=== PATIENT | female | born 1940 | race Caucasian/White ===

== ENCOUNTER 2022-08-14 13:48 | Outpatient (CLI) | payer MEDICARE, SELFPAY | END 2022-08-14 13:49 | disposition home or self-care (01) | PROVIDERS: PCP Family Medicine; Visit Provider Internal Medicine | DX: Z95.2 Presence of prosthetic heart valve (principal); I34.0 Nonrheumatic mitral (valve) insufficiency; I07.1 Rheumatic tricuspid insufficiency | CPT/HCPCS: 93306 ==

== ENCOUNTER 2024-07-13 08:15 | Emergency (ER) | payer MEDICARE, SELFPAY ==
[2024-07-13] VITALS (10 sets, daily range): BP systolic 142–156; BP diastolic 62–72; PULSE 68–80; RESP 18; TEMP 36.6; O2SAT 95–99; BMI 22.1
--- NOTE | 2024-07-13 08:17 | ED.GENADULT ---
HPI - General Adult General Date Seen: 07/13/24 Chief complaint: Fall/Minor Trauma Stated complaint: Fall Time Seen by Provider: 07/13/24 08:17 History of Present Illness HPI narrative: 84-year-old female presenting to the ER today by private car from her home. She is brought in by her daughter. She has a past medical history of hypertension, coronary artery disease (stents placed several years ago), aortic stenosis status post TAVR, but no history of diabetes, cancer, seizures. History from the patient her daughter is that beginning in the evening or overnight Wednesday she began to be ill. She developed diarrhea with at least 8 episodes of watery brown stool. With this she also had fairly significant lower abdominal pain and cramping. She had a poor appetite but no nausea or vomiting. No fevers. The diarrhea largely subsided by around noon on Wednesday. Since then she has had fatigue and malaise. She has had a poor appetite. She says she just can not eat because everything tastes ?like paper. ? No cough. No fever or chills. Her daughter was helping her in. By yesterday to bring her some water and snacks but it sounds like she was not eating it and may not have been drinking much. Patient recalls that she was watching a show on her TV yesterday about 7. She woke up on the floor for kitchen about 9:30 p.m. last night. She does not know what happened but she thinks she must have gotten there and either fallen or fainted. She does not recall anything about the fall. She was too weak get herself off the floor so she crawled down the hallway and crawled into bed last night. She says she slept pretty well. She called her daughter this morning about 7 and asked her daughter to bring her in because she is just too weak. Since falling she does have pain in her her right hip, right foot, and elbow. No headache. No chest pain. No blurry vision. No nausea or vomiting. She still feels weak, poor appetite and does not want to eat or drink. She takes aspirin but does not think she is on Plavix. No other anticoagulants. Related Data Home Medications ?Medication ?Instructions ?Recorded ?Confirmed alendronate 70 mg tablet 70 mg PO 07/13/24 amlodipine 5 mg tablet 5 mg PO DAILY 07/13/24 07/13/24 hydrochlorothiazide 12.5 mg capsule 12.5 mg PO DAILY 07/13/24 07/13/24 potassium chloride 10 mEq 10 meq PO DAILY 07/13/24 07/13/24 tablet,extended release(part/cryst) rosuvastatin 40 mg tablet 40 mg PO QPM 07/13/24 07/13/24 Allergies Allergy/AdvReac Type Severity Reaction Status Date / Time Iodinated Contrast Media Allergy Verified 07/13/24 08:32 [facility] Social History Smoking Status: Never smoker Do you use any of these nicotine containing products: None How often do you have a drink containing alcohol: never AUDIT-C Alcohol total score: 0 Non-prescribed substance use: denies use Exam Narrative: Exam Narrative: Constitutional: Appears well-developed and well-nourished. Alert. Conversant but seems hard of hearing at times. Non toxic. HENT: Head: Atraumatic. No depressed skull fracture, Raccoon Eyes, Haas's sign, or hemotympanum. Face normal. Nose: Nose normal. Mouth/Throat: Oral mucosa is clear and moist. no trismus. Pharynx normal. Tonsils symmetric. No tonsillar enlargement, erythema, or exudate. Eyes: Conjunctivae normal. EOM normal. Pupils equal, round, and reactive to light. No scleral icterus. Neck: No posterior midline tenderness or step-off. Normal range of motion. Neck supple. No tracheal deviation present. Cardiovascular: Normal rate, regular rhythm. No gallop. No friction rub. No murmur heard. Symmetric radial and DP artery pulses Pulmonary/Chest: Effort normal. No stridor. No respiratory distress. No wheezes. No rales. No rhonchi . No tenderness. Abdominal: Soft. Bowel sounds normal. No distension. No mass. Epigastric and bilateral lower tenderness. No rebound. No guarding. No CVA tender Musculoskeletal: No midline C, T, L-spine tenderness Pelvis is stable. RUE: Normal range of motion. No tenderness. No deformity LUE: Normal range of motion. No tenderness. No deformity RLE: Right hip tenderness to palpation. No bruising or swelling. No edema. Femur, knee, ankle or nontender. She has bruising and tenderness over the distal forefoot with ecchymosis affecting the 3rd, 4th, 5th toes. No deformity LLE: Normal range of motion. No edema. No tenderness. No deformity she does have bruising on her left hip and left ASIS. Neurological: Alert and oriented to person, place, and time. Normal strength. CN II-VII intact. No sensory deficit. GCS eye subscore is 4. GCS verbal subscore is 5. GCS motor subscore is 6. Normal coordination Skin: Skin is warm and dry. No rash noted. No pallor. Normal capillary refill. Psychiatric: Normal mood. Normal affect. Const: Vital Signs, click to edit/add: Vital Signs - 24 hr 07/13/24 08:25 07/13/24 08:26 07/13/24 08:30 Temperature 97.8 F Pulse Rate Pulse Rate [Right Pulse Oximeter] 80 Respiratory Rate 18 Blood Pressure Blood Pressure [Ri ght Upper Arm] 156/72 H Pulse Oximetry 96 99 98 Oxygen Delivery Me thod Room Air 07/13/24 08:45 07/13/24 09:00 07/13/24 09:58 Temperature Pulse Rate 72 Pulse Rate [Right Pulse Oximeter] Respiratory Rate Blood Pressure Blood Pressure [Ri ght Upper Arm] Pulse Oximetry 98 95 97 Oxygen Delivery Pr thod 07/13/24 09:59 07/13/24 10:00 07/13/24 10:15 Temperature Pulse Rate 70 68 69 Pulse Rate [Right Pulse Oximeter] Respiratory Rate Blood Pressure 142/62 H Blood Pressure [Ri ght Upper Arm] Pulse Oximetry 96 97 96 [facility] 07/13/24 10:30 Temperature Pulse Rate 69 Pulse Rate [Right Pulse Oximeter] Respiratory Rate Blood Pressure Blood Pressure [Ri ght Upper Arm] Pulse Oximetry 98 Oxygen Delivery Pr thod Course Course ED Course: Recheck-patient says she feels ?much better? after 1 L of IV crystalloid. Has had a few sips of water and says she feels like her appetite is returning. She is feeling better and requesting discharge. All labs are reassuring at this point x-rays are reassuring, her daughter and I have concerned about her overall weakness and her poor oral intake over the past couple of days. It turns out that her weakness is probably related to dehydration. We want make sure that she can pass a p.o. challenge (she will try a meal tray from the cafeteria) and ambulation trial before discharge Vital Signs Vital signs: Initial Vital Signs Temperature 97.8 F 07/13/24 08:25 Temperature Source Temporal Artery Scan 07/13/24 08:25 Pulse Rate 80 07/13/24 08:25 Respiratory Rate 18 07/13/24 08:25 Blood Pressure 156/72 H 07/13/24 08:25 Blood Pressure Mean 100 07/13/24 08:25 Blood Pressure Position Sitting 07/13/24 08:25 Pulse Oximetry 96 07/13/24 08:25 Oxygen Delivery Method Room Air 07/13/24 08:25 Vital Signs Temperature 97.8 F 07/13/24 08:25 Pulse Rate 80 07/13/24 08:25 Respiratory Rate 18 07/13/24 08:25 Blood Pressure 156/72 H 07/13/24 08:25 Pulse Oximetry 96 07/13/24 08:25 Oxygen Delivery Method Room Air 07/13/24 08:25 Temperature 97.8 F 07/13/24 08:25 Pulse Rate 69 07/13/24 10:30 Respiratory Rate 18 07/13/24 08:25 Blood Pressure 142/62 H 07/13/24 09:59 Pulse Oximetry 98 07/13/24 10:30 Oxygen Delivery Method Room Air 07/13/24 08:25 Medications Administered Medications: Discontinued Medications Generic Name Dose Route Start Last Admin Trade Name Monica PRN Reason Stop Dose Admin Ketorolac Tromethamine 15 mg 07/13/24 09:02 07/13/24 09:32 Ketorolac 15 Mg/Ml Inj IVP 07/13/24 09:03 15 mg ONCE ONE Administration Lactated Ringer's 1,000 ml 07/13/24 09:02 07/13/24 09:32 Lactated Ringers 1000 Ml IV 07/13/24 09:03 1,000 ml ONCE ONE Administration Medical Decision Making MDM Narrative Medical decision making narrative: 84-year-old woman who normally lives independently presenting to the ER today from home with her daughter. She had an unwitnessed fall in the kitchen last night. She does not recall any of the events leading up to the fall so we do not know if she tripped and lost her balance, got weak from dehydration, or possibly had a syncopal event. She has no history of seizures. 1. Trauma. No sign of head trauma but given age and limited history we did obtain head CT and is negative for any intracranial bleed. She is not having any neck pain or posterior midline tenderness. She does not have any distracting orthopedic injuries, intoxication, or altered mental status. Therefore we can clear her C-spine without imaging. She has bruising on her left elbow but no bony tenderness and normal active range of motion in there so will hold off on x-rays. She has right hip pain and tenderness (without bruising) and also a small bruise on her left ASIS. Pelvic CT is negative for any acute bony injury She also has bruising and pain in her right forefoot affecting the 3-5 toes. No evidence for any redness or infection. Strong DP pulse and normal cap refill. No signs of ischemia. With a fall last night concern is for possible toe fracture. X-rays are negative for fracture by my read. However radiology read does indicate she has a nondisplaced fracture 5th proximal phalanx of the 5th toe and possibly the 3rd toe as well. She is ambulating well with an ortho shoe. Discussed that these fractures will heal with time. No need for operative intervention list that they come angulated or displaced. 2. GI. She apparently had a diarrheal illness overnight Wednesday night and Wednesday and since then has had no further diarrhea but generally poor oral intake and some abdominal pain. CT scan is negative for any sign of colitis, diverticulitis, or bowel obstruction or other surgical emergency. Mildly abnormal LFTs with bilirubin of 1.7 and AST of 40 ALT of 36. No previous for comparison. Has had previous cholecystectomy. Liver normal on noncontrast CT. Lipase normal. 3. Renal/electrolytes. Patient did have clinical signs of dehydration with dry mucous membranes. The sodium mildly low at 131. Potassium and bicarb normal. Kidney function normal. Venous lactic normal. 4. ID. Consider bacterial enteritis versus viral. Overall minimum presentation would favor viral illness. No bloody or mucousy stool. No high fever. Labs normal. No known exposure to suspicious food. No recent antibiotics. UA normal. No cough or shortness of breath. Oxygen sats normal. 5. Heme. No recent black or bloody stools. Hemoglobin normal. No evidence for anemia leading to fall. 5. Cardiac. Did have an unexplained fall in the bathroom last night. She does have a history of aortic valve replacement and a history of coronary disease years ago. Given the rest of her clinical presentation would favor that this was probably orthostasis and dehydration from recent diarrhea with very poor oral intake since Wednesday. EKG nonischemic and shows no definite arrhythmia. Troponin negative. She is not having any chest pain. 6. Disposition. Initial presentation was concerning that she was likely going to be very dehydrated and require hospitalization overnight for rehydration. However she remained a remarkable turnaround here in the ER. She is feeling tremendously better after a L of crystalloid. She passed p.o. challenge and ambulation trial in the hallway. She has made urine more than once. Urinalysis negative for infection. She is requesting discharge. Her daughter and I are supportive of that based on her approved so far. Precautions for return to the ER reviewed. Lab Data Labs: Lab Results 07/13/24 07/13/24 Range/Units 09:24 11:00 WBC 10.32 (4.50-11.00) K/uL RBC 4.28 (4.00-5.20) m/uL Hgb 14.0 (12.0-16.0) gm/dL Hct 39.9 (33.0-51.0) % MCV 93 (80-100) fL MCH 33 (26-34) pg MCHC 35 (32-36) gm/dL RDW Coeff of Nicolasa 11.6 (11.5-15.5) % Plt Count 242 (140-440) K/uL Neut % (Auto) 73.8 H (42.0-72.0) % Lymph % (Auto) 14.1 L (20-44) % Hickman % (Auto) 10.8 (0.0-11.0) % Eos % (Auto) 0.5 (0.0-7.0) % Baso % (Auto) 0.5 (0.0-3.0) % Neut # (Auto) 7.60 H (1.7-7.0) K/uL Lymph # (Auto) 1.50 (0.90-2.90) K/uL Hickman # (Auto) 1.10 H (0.00-0.90) K/UL Eos # (Auto) 0.05 (0.00-0.50) K/uL Baso # (Auto) 0.05 (0.00-0.30) K/uL Abs Immat Gran (auto) 0.03 (0.00-0.30) K/uL Imm/Tot Granulo (auto) 0.3 % Sodium 131 L (135-149) mmol/L Potassium 3.8 (3.6-5.1) mmol/L Chloride 96 (96-114) mmol/L Carbon Dioxide 27 (20-32) mmol/L Anion Gap 8 (7-15) mEq/L BUN 9 (7-30) mg/dL Creatinine 0.5 (0.5-1.5) mg/dL Estimated Creat Clear 35.52 Estimated GFR 92 ml/min Glucose 99 (60-115) mg/dL Lactate 1.0 (0.5-1.9) mmol/L Calcium 9.7 (8.4-10.6) mg/dL Total Bilirubin 1.7 H (0.1-1.5) mg/dL AST 40 H (12-35) U/L ALT 36 H (4-35) U/L Alkaline Phosphatase 66 (40-150) U/L Troponin I 0.03 (0.01-0.04) ng/mL Total Protein 7.8 (6.0-8.3) g/dL Albumin 5.1 H (3.3-5.0) g/dL Lipase 88 (23-300) U/L Urine Color Yellow (Yellow) Urine Appearance Clear (Clear) Urine pH 7.5 (5.0-8.5) Ur Specific [place] 1.015 (1.000-1.030) Urine Protein Negative (Negative) Urine Glucose (UA) Negative (Negative) Urine Ketones Negative (Negative) Urine Blood Negative (Negative) Urine Nitrite Negative (Negative) Urine Bilirubin Negative (Negative) Urine Urobilinogen 0.2 (0.2-1.0) Ur Leukocyte Esterase Negative (Negative) Urine RBC 0-2 (0-2) Urine WBC 0-2 (0-5) Ur Squamous Epith Cells None (None-Few) Urine Bacteria None (None) Imaging Data CT scan - head: Attestation: I have reviewed the pertinent imaging results. Radiologist's impression: IMPRESSION: No acute findings. CT scan - abdomen: Attestation: I have reviewed the pertinent imaging results. Radiologist's impression: Impression: 1. Mild emphysematous and chronic interstitial changes without dense consolidation. 2. Moderate stool seen throughout the colon with minimal nonspecific fluid-filled central small bowel which may represent mild enteritis. 3. No other acute intra-abdominal abnormalities are appreciated. No acute osseous abnormality. xr left foot: Attestation: I have reviewed the pertinent imaging results. My impression: no acute fracture Dr. farias Radiologist's impression: Findings/Impression: Nondisplaced fracture at the proximal shaft and base of the proximal 5th phalanx without apparent intra-articular extension. Likely nondisplaced fracture at the base of the 3rd proximal phalanx with tiny adjacent osseous fragment and no intra-articular extension. No additional fractures or malalignment. Trace osteoarthritic degenerative changes throughout the interphalangeal joints and midfoot. No suspicious osseous lesions. Achilles aspect calcaneal enthesophyte. Mild soft tissue swelling of the 4th and 5th toes. Minimal vascular calcifications. ECG Data Attestation: I personally reviewed and interpreted this ECG as follows: Interpretation: Normal sinus rhythm Rate: 74 AK: 158 QRS axis: Left axis deviation. Right bundle-branch block. Left anterior fascicular block. Possible LVH based on tall R-wave in lead aVL ST segment/T wave: No ST segment elevation or depression. QTc: 499 Discharge Plan Discharge Clinical Impression: Fall, Dehydration, Closed fracture of toe, Contusion of hip, Diarrhea Patient Disposition: Home, Self-Care Condition: Stable Instructions: Dehydration (DC), Toe Fracture (ED), Fall Prevention for Older Adults (ED) Additional Instructions: As we discussed, drink plenty of fluids and try to eat small stacks to maintain hydration and nutrition. If you are having worsening dehydration or weakness, nausea or vomiting, or if your diarrhea comes back, or any other problems please come back to the ER right away. You do have broken toes on your right foot. Use the special foot brace to protect her toes for the next couple of weeks while they heal. If her not substantially improved within 7-10 days, please recheck with your regular doctor. You can use Tylenol or ibuprofen if needed for pain. Keep your foot elevated when possible. Prescriptions: No Action alendronate 70 mg tablet 70 mg PO amlodipine 5 mg tablet 5 mg PO DAILY hydrochlorothiazide 12.5 mg capsule 12.5 mg PO DAILY rosuvastatin 40 mg tablet 40 mg PO QPM potassium chloride 10 mEq tablet,ER particles/crystals 10 meq PO DAILY Follow Up/Referrals: Ayan Brambila MD [Primary Care Provider] - Stand Alone Forms: [employer] Info Instructions
--- NOTE | 2024-07-13 09:03 | CRLHL7_ITS ---
For Patients: As a result of the 21st Century Cures Act, medical imaging exams and procedure reports are released immediately into your electronic medical record. You may view this report before your referring provider. If you have questions, please contact your health care provider. Indication: Fall, abdominal pain, diarrhea, hip pain Technique: Volumetric multidetector CT images of the chest, abdomen, and pelvis were obtained without the administration of intravenous contrast. No low osmolar intravenous contrast Comparison: CT abdomen and pelvis June 27, 2019 FINDINGS: CHEST The thoracic inlet is unremarkable. The thyroid gland is within normal limits. The thoracic aorta is nonaneurysmal with scattered atherosclerotic calcification. Aortic valve prosthesis is appreciated. There are scattered calcified granulomas seen throughout the bilateral hemithoraces. There is no mediastinal, hilar, or axillary adenopathy. There is moderate emphysematous change of the upper lobes with basilar atelectasis and parenchymal scar. There is mild calcified biapical pleural thickening. Minimal peripheral reticulation in the right greater than left upper lobes. No dense consolidation, effusion or pneumothorax. The thoracic osseus structures are intact without fracture, lytic, or blastic lesion. The thoracic vertebral body heights are grossly maintained with minimal endplate Schmorl`s defects. There is no significant spondylolisthesis or displaced fracture. ABDOMEN AND PELVIS The liver is mildly prominent without evidence of focal abnormality. The spleen is normal in attenuation and size. There is prior cholecystectomy. There is no intrahepatic or common ductal dilatation. The stomach and duodenum are grossly unremarkable. The pancreas is normal in enhancement without significant atrophy. The adrenal glands are unremarkable without evidence of adenoma. The kidneys are preserved and corticomedullary differentiation. There is no hydronephrosis or radiopaque calculus. There is a moderate diffuse amount of intracolonic stool. There is minimal distal colonic diverticulosis. There is minimal fluid-filled central small bowel. The appendix is not well visualized. The abdominal aorta is nonaneurysmal with moderate atherosclerotic calcification. There is prior hysterectomy. Otherwise the pelvic viscera are grossly within normal limits. There is no pathologically enlarged epigastric, mesenteric, retroperitoneal, or pelvic sidewall lymph node. The anterior abdominal wall is grossly intact without significant hernias. There is no free air or free fluid. Degenerative changes of the bilateral hips with axial loss of joint space and marginal osteophyte formation. No evidence of displaced fracture. Degenerative changes of the pubic symphysis and sacroiliac joints are appreciated. Stable chronic deformity of the superior L1 endplate. Minimal endplate Schmorl`s defects without evidence of significant spondylolisthesis. Impression: 1. Mild emphysematous and chronic interstitial changes without dense consolidation. 2. Moderate stool seen throughout the colon with minimal nonspecific fluid-filled central small bowel which may represent mild enteritis. 3. No other acute intra-abdominal abnormalities are appreciated. No acute osseous abnormality. Please note that all CT scans at this facility use dose modulation, iterative reconstruction, and/or weight-based dosing when appropriate to reduce radiation dose to as low as reasonably achievable. Dictated by Cam Del oTro MD @ 07/13/2024 10:22:29 AM (Electronically Signed)
--- NOTE | 2024-07-13 09:03 | CRLHL7_ITS ---
For Patients: As a result of the Century Cures Act, medical imaging exams and procedure reports are released immediately into your electronic medical record. You may view this report before your referring provider. If you have questions, please contact your health care provider. INDICATION: Fall. COMPARISON: None available. TECHNIQUE: CT of the head without intravenous contrast. Please note that all CT scans at this facility use dose modulation, iterative reconstruction, and/or weight-based dosing when appropriate to reduce radiation dose to as low as reasonably achievable. FINDINGS: The brain is normal in attenuation with preserved costello-white matter differentiation. No hydrocephalus. No mass or mass effect. No intracranial hemorrhage. Intact skull base and cranial vault. Visualized orbits are without significant incidental findings. Bilateral lens implants. Visualized paranasal sinuses and mastoid air cells are clear. IMPRESSION: No acute findings. Please note that all CT scans at this facility use dose modulation, iterative reconstruction, and/or weight-based dosing when appropriate to reduce radiation dose to as low as reasonably achievable. Dictated by Sylvain Maya MD @ 07/13/2024 10:12:37 AM (Electronically Signed)
[2024-07-13 09:30] LABS: Basophils Absolute Auto 0.05 K/uL (0.00-0.30); Basophils Percent Auto 0.5 % (0.0-3.0); Eosinophils Absolute Auto 0.05 K/uL (0.00-0.50); Eosinophils Percent Auto 0.5 % (0.0-7.0); Hematocrit 39.9 % (33.0-51.0); Immature Granulocytes Abs Auto 0.03 K/uL (0.00-0.30); Immature Granulocytes Pct Auto 0.3 %; Lymphocytes Percent Auto 14.1 % (20-44); Mean Corpuscular HGB Conc 35 gm/dL (32-36); Mean Corpuscular Hemoglobin 33 pg (26-34); Mean Corpuscular Volume 93 fL (80-100); Monocytes Percent Auto 10.8 % (0.0-11.0); Neutrophils Percent Auto 73.8 % (42.0-72.0); Platelet Count* 242 K/uL (140-440); RDW Coefficient of Variation % 11.6 % (11.5-15.5); Red Blood Count 4.28 m/uL (4.00-5.20); White Blood Count* 10.32 K/uL (4.50-11.00)
[2024-07-13] MEDS: LACTATED RINGERS 1000 ML IV (09:32)
[2024-07-13] MEDS: KETOROLAC 15 MG/ML inj IVP (09:32)
[2024-07-13 09:37] LABS: Slide Review Reflex No
[2024-07-13 09:53] LABS: Albumin* 5.1 g/dL (3.3-5.0)
[2024-07-13 09:54] LABS: Chloride* 96 mmol/L (96-114); Potassium* 3.8 mmol/L (3.6-5.1); Sodium* 131 mmol/L (135-149)
[2024-07-13 09:56] LABS: Alkaline Phosphatase* 66 U/L (40-150); Anion Gap 8 mEq/L (7-15); Aspartate Amino Transferase* 40 U/L (12-35); Bilirubin Total* 1.7 mg/dL (0.1-1.5); Blood Urea Nitrogen* 9 mg/dL (7-30); Carbon Dioxide* 27 mmol/L (20-32); Creatinine* 0.5 mg/dL (0.5-1.5); Est. Creatinine Clearance* 35.52; Estimated Glomerular Filt Rate 92 ml/min; Total Protein* 7.8 g/dL (6.0-8.3)
[2024-07-13 09:57] LABS: Alanine Aminotransferase* 36 U/L (4-35); Calcium* 9.7 mg/dL (8.4-10.6); Glucose* 99 mg/dL (60-115); Lipase* 88 U/L (23-300)
[2024-07-13 10:09] LABS: Troponin I* 0.03 ng/mL (0.01-0.04)
--- NOTE | 2024-07-13 10:33 | CRLHL7_ITS ---
For Patients: As a result of the Cures Act, medical imaging exams and procedure reports are released immediately into your electronic medical record. You may view this report before your referring provider. If you have questions, please contact your health care provider. Indication: fall, foot pain, bruising 3-5 toes Technique: Three views of the right foot Comparison: None Findings/Impression: Nondisplaced fracture at the proximal shaft and base of the proximal 5th phalanx without apparent intra-articular extension. Likely nondisplaced fracture at the base of the 3rd proximal phalanx with tiny adjacent osseous fragment and no intra-articular extension. No additional fractures or malalignment. Trace osteoarthritic degenerative changes throughout the interphalangeal joints and midfoot. No suspicious osseous lesions. Achilles aspect calcaneal enthesophyte. Mild soft tissue swelling of the 4th and 5th toes. Minimal vascular calcifications. Dictated by Mio Young MD @ 07/13/2024 12:33:17 PM (Electronically Signed)
[2024-07-13 11:10] LABS: Appearance Urine Clear (Clear); Bilirubin Urine Negative (Negative); Blood Urine Negative (Negative); Color Urine Yellow (Yellow); Glucose Urine Negative (Negative); Ketones Urine Negative (Negative); Leukocyte Esterase Urine Negative (Negative); Nitrite Urine Negative (Negative); Protein Urine Negative (Negative); Specific Gravity Urine 1.015 (1.000-1.030); Urobilinogen Urine 0.2 (0.2-1.0); pH Urine 7.5 (5.0-8.5)
[2024-07-13 11:25] LABS: RBC Urine 0-2 (0-2); WBC Urine 0-2 (0-5)
== END 2024-07-13 13:40 | disposition home or self-care (01) ==
PROVIDERS: Emergency Provider Emergency Medicine; PCP Family Medicine
DX: S70.01XA Contusion of right hip, initial encounter (principal); S92.514A Nondisplaced fracture of proximal phalanx of right lesser toe(s), initial encounter for closed fracture; W19.XXXA Unspecified fall, initial encounter
CPT/HCPCS: 36415; 70450; 73630; 74176; 80053; 81001; 83605; 83690; 84484; 85025; 93005; 96374; 99284; 99285; J1885; J7120

== ENCOUNTER 2025-01-06 08:50 | Inpatient (IN) | payer MEDICARE, SELFPAY ==
[2025-01-06] VITALS (28 sets, daily range): BP systolic 62–147; BP diastolic 35–90; PULSE 62–97; RESP 12–144; TEMP 36.6–36.9; O2SAT 92–99; BMI 22.1; BMI 22.0
[2025-01-06] MEDS: NITROGLYCERIN 0.4 MG TAB.SUBL SUBLINGUAL (09:22)
[2025-01-06 09:31] LABS: Basophils Absolute Auto 0.05 K/uL (0.00-0.30); Basophils Percent Auto 0.8 % (0.0-3.0); Eosinophils Absolute Auto 0.09 K/uL (0.00-0.50); Eosinophils Percent Auto 1.4 % (0.0-7.0); Hematocrit 39.4 % (33.0-51.0); Hemoglobin* 13.5 gm/dL (12.0-16.0); Immature Granulocytes Abs Auto 0.02 K/uL (0.00-0.30); Immature Granulocytes Pct Auto 0.3 %; Lymphocytes Percent Auto 17.8 % (20-44); Mean Corpuscular HGB Conc 34 gm/dL (32-36); Mean Corpuscular Hemoglobin 33 pg (26-34); Mean Corpuscular Volume 96 fL (80-100); Monocytes Percent Auto 5.3 % (0.0-11.0); Neutrophils Percent Auto 74.4 % (42.0-72.0); Platelet Count* 213 K/uL (140-440); RDW Coefficient of Variation % 12.8 % (11.5-15.5); Troponin, Point-of-Care* 0.02 ng/ml (0.01-0.04); White Blood Count* 6.57 K/uL (4.50-11.00)
[2025-01-06] MEDS: 0.9 % SODIUM CHLORIDE 1000 ml 1,000 ML IV ×2 (09:36→13:46)
--- NOTE | 2025-01-06 09:36 | ED.GENADULT ---
HPI - General Adult General Date Seen: 01/06/25 Chief complaint: Back Injury/Pain Stated complaint: chest/back pain Time Seen by Provider: 01/06/25 09:13 Source: patient Mode of arrival: ambulatory Limitations: no limitations History of Present Illness HPI narrative: Patient is an 84-year-old female presenting to the emergency department for chest and back pain. She states she woke up this morning and went to the bathroom. When she laid back down she noticed the severe chest pain that radiates to her back. She states it is midsternal in feels like a pressure sensation in her chest. She has had an DE before with stents but does not remember what her symptoms were at that time. States she initially felt very diaphoretic but that has since improved. Has had echo in October the which the patient states was normal. Has had a recent fall in October also which she broke 3 toes. She states she has noticed some very mild shortness of breath then states the pain may get a little bit worse when she takes a deep breath but can not say for certain. Was feeling lightheaded that improved now that she is laying down. Denies abdominal pain, nausea, vomiting, diarrhea, constipation, weakness, numbness, headache, dysuria. Can not remember ever having symptoms like this before. Related Data Home Medications ?Medication ?Instructions ?Recorded ?Confirmed alendronate 70 mg tablet 70 mg PO .Wednesday07/13/24 01/06/25 amlodipine 5 mg tablet 5 mg PO DAILY 07/13/24 01/06/25 hydrochlorothiazide 12.5 mg capsule 12.5 mg PO DAILY 07/13/24 01/06/25 potassium chloride 10 mEq 10 meq PO DAILY 07/13/24 01/06/25 tablet,extended release(part/cryst) rosuvastatin 40 mg tablet 40 mg PO HS 07/13/24 01/06/25 aspirin 81 mg chewable tablet 81 mg PO DAILY 01/06/25 01/06/25 cholecalciferol (vitamin D3) 75 75 mcg PO DAILY 01/06/25 01/06/25 mcg (3,000 unit) tablet magnesium PO DAILY 01/06/25 Allergies Allergy/AdvReac Type Severity Reaction Status Date / Time Iodinated Contrast Media Allergy Unknown Edema Verified 01/06/25 10:16 Review of Systems Status of ROS: Reports: 10 or more systems reviewed and unremarkable except as noted in History and below [facility] Social History Smoking Status: Never smoker Do you use any of these nicotine containing products: None How often do you have a drink containing alcohol: never AUDIT-C Alcohol total score: 0 Non-prescribed substance use: denies use Exam Narrative: Exam Narrative: Const: Well-nourished, Well-developed, in moderate distress Eyes: PERRL, no conjunctival injection, and symmetrical lids HENT: Atraumatic external nose and ears. Moist mucous membranes. Neck: Symmetric, trachea midline, No thyromegaly. CVS: RRR, No murmurs or gallops. Peripheral pulses 2+ and equal in all extremities RESP: Unlabored respiratory effort. Clear to auscultation bilaterally. GI: Nontender/Nondistended, No rebound or guarding. MSK:Extremities w/o deformity, Normal Active ROM Skin: Warm, Dry. No rashes or lesions. Neuro: Normal Muscle tone, No focal neurological deficits. Psych: Awake, Alert, & Oriented x3. Appropriate mood and affect. Const: Vital Signs, click to edit/add: Vital Signs - 24 hr 01/06/25 09:06 01/06/25 09:18 01/06/25 09:26 Temperature 98.4 F Pulse Rate 76 73 Pulse Rate [Pulse Oximeter] 67 Respiratory Rate 12 14 12 Blood Pressure 147/81 H 131/59 L Blood Pressure [Ri ght Upper Arm] 136/61 Pulse Oximetry 99 98 99 Oxygen Delivery Me thod Room Air 01/06/25 09:31 01/06/25 09:34 01/06/25 09:41 Temperature Pulse Rate 66 62 66 Pulse Rate [Pulse Oximeter] Respiratory Rate 17 18 12 Blood Pressure 80/40 L 62/35 L 87/58 L Blood Pressure [Ri ght Upper Arm] Pulse Oximetry 96 96 97 Oxygen Delivery Me thod 01/06/25 09:48 01/06/25 09:55 01/06/25 10:02 Temperature Pulse Rate 68 72 70 Pulse Rate [Pulse Oximeter] Respiratory Rate 20 12 14 Blood Pressure 90/71 111/68 96/58 L Blood Pressure [Ri ght Upper Arm] Pulse Oximetry 98 95 92 Oxygen Delivery Me thod 01/06/25 10:17 01/06/25 10:31 01/06/25 10:47 Temperature Pulse Rate 72 74 70 Pulse Rate [Pulse Oximeter] Respiratory Rate 18 12 19 Blood Pressure 94/48 L 98/71 96/59 L Blood Pressure [Ri ght Upper Arm] Pulse Oximetry 95 93 93 Oxygen Delivery Me thod 01/06/25 11:02 01/06/25 11:32 01/06/25 11:47 Temperature Pulse Rate 75 80 75 Pulse Rate [Pulse Oximeter] Respiratory Rate 14 21 20 Blood Pressure 102/68 106/45 L 101/38 L Blood Pressure [Ri ght Upper Arm] Pulse Oximetry 95 94 95 Oxygen Delivery Me thod 01/06/25 12:01 01/06/25 12:31 01/06/25 12:46 Temperature Pulse Rate 76 77 78 Pulse Rate [Pulse Oximeter] Respiratory Rate 15 20 22 Blood Pressure 104/43 L 97/62 113/90 H Blood Pressure [Ri ght Upper Arm] Pulse Oximetry 97 95 95 Oxygen Delivery Me thod 01/06/25 13:01 Temperature Pulse Rate 82 Pulse Rate [Pulse Oximeter] Respiratory Rate 20 Blood Pressure 107/83 Blood Pressure [Ri ght Upper Arm] Pulse Oximetry 95 Oxygen Delivery Me thod Room Air Course Vital Signs Vital signs: Initial Vital Signs Temperature 98.4 F 01/06/25 09:06 Temperature Source Temporal Artery Scan 01/06/25 09:06 Pulse Rate 67 01/06/25 09:06 Respiratory Rate 12 01/06/25 09:06 Blood Pressure 136/61 01/06/25 09:06 Blood Pressure Mean 86 01/06/25 09:06 Blood Pressure Position High-Fowlers 01/06/25 09:06 Pulse Oximetry 99 01/06/25 09:06 Oxygen Delivery Method Room Air 01/06/25 09:06 Vital Signs Temperature 98.4 F 01/06/25 09:06 Pulse Rate 67 01/06/25 09:06 Respiratory Rate 12 01/06/25 09:06 Blood Pressure 136/61 01/06/25 09:06 Pulse Oximetry 99 01/06/25 09:06 Oxygen Delivery Method Room Air 01/06/25 09:06 Temperature 98.4 F 01/06/25 09:06 Pulse Rate 82 01/06/25 13:01 Respiratory Rate 20 01/06/25 13:01 Blood Pressure 107/83 01/06/25 13:01 Pulse Oximetry 95 01/06/25 13:01 Oxygen Delivery Method Room Air 01/06/25 13:01 Medications Administered Medications: Discontinued Medications Generic Name Dose Route Start Last Admin Trade Name Monica PRN Reason Stop Dose Admin Diphenhydramine HCl 50 mg 01/06/25 09:40 01/06/25 09:48 Diphenhydramine 50 Mg/Ml Inj IVP 01/06/25 09:41 50 mg ONCE ONE Administration Fentanyl 50 mcg 01/06/25 10:03 01/06/25 09:57 Fentanyl 100 Mcg/2 Ml Inj IVP 01/06/25 10:04 50 mcg ONCE ONE Administration Fentanyl 50 mcg 01/06/25 14:43 01/06/25 15:08 Fentanyl 100 Mcg/2 Ml Inj IVP 01/06/25 14:44 50 mcg ONCE ONE Administration Hydrocortisone Sodium Succinate 200 mg 01/06/25 09:40 01/06/25 09:48 Hydrocortisone Sod Succinate 50 Mg/Ml Inj IVP 01/06/25 09:41 200 mg ONCE ONE Administration Sodium Chloride 1,000 mls @ 1,000 mls/hr 01/06/25 10:15 01/06/25 11:05 0.9 % Sodium Chloride 1000 Ml IV 01/06/25 11:14 Infused .Q1H AMBERLY Infusion Sodium Chloride 1,000 mls @ 1,000 mls/hr 01/06/25 13:30 01/06/25 15:05 0.9 % Sodium Chloride 1000 Ml IV 01/06/25 14:29 Infused .Q1H AMBERLY Infusion Nitroglycerin 0.4 mg 01/06/25 09:17 01/06/25 09:22 Nitroglycerin 0.4 Mg Tab.Subl SUBLINGUAL 01/06/25 09:18 0.4 mg ONCE ONE Administration Medical Decision Making MDM Narrative Medical decision making narrative: Patient is 84-year-old female presenting for chest and back pain. The differential diagnosis of chest pain is broad and includes common etiologies such as musculoskeletal strain, GERD, pneumonia, etc. More serious etiologies considered include PE, coronary artery disease, pneumothorax, aortic dissection, aortic aneurysm. With her description of her pain I do have some concern for aortic dissection both otherwise stable vital signs seems less likely. I do also have concern about ACS with her history so nitro was given. EKG and troponin also ordered. My concern for PE at this time was relatively low as she is having very mild shortness of breath and overall does not seem to fit with PE. Will order a COVID/flu/RSV, magnesium, BNP, BMP, CBC. After she received the nitro her blood pressure did drop significantly. Pain did not change at all. Blood pressure did eventually start to improve again. Was given fentanyl for her pain as it has less vasoactive activity. Will do a CTA to look for signs of dissection causing her pain. Did have to pre treat with diphenhydramine and hydrocortisone per protocol due to her allergy, considering her vital signs are back to being stable I am okay with holding off for the pre treatment. After the pretreatment she was taken to CTA. CTA came back showing possible pancreatitis. Does have some mild extrahepatic and intrahepatic biliary duct dilation. Has had previously cholecystectomy. Lipase was ordered and this was quite elevated. LFTs were ordered with AST twice that of ALT. This is consistent with alcoholic disease. She does admit to drinking a few drinks at least twice a week. Last drink was yesterday. Viral swabs are negative. EKG and troponin showed no concerning abnormalities. UA showing no signs of hepatic encephalopathy. The hospitalist does want ammonia level though. She denies any hemaemesis. And her daughter states she has summaries acting normally. Will order an MRCP. Lab Data Labs: Lab Results 01/06/25 01/06/25 01/06/25 Range/Units 09:15 09:25 09:30 WBC 6.57 (4.50-11.00) K/uL RBC 4.10 (4.00-5.20) m/uL Hgb 13.5 (12.0-16.0) gm/dL Hct 39.4 (33.0-51.0) % MCV 96 (80-100) fL MCH 33 (26-34) pg MCHC 34 (32-36) gm/dL RDW Coeff of Nicolasa 12.8 (11.5-15.5) % Plt Count 213 (140-440) K/uL Neut % (Auto) 74.4 H (42.0-72.0) % Lymph % (Auto) 17.8 L (20-44) % [place] % (Auto) 5.3 (0.0-11.0) % Eos % (Auto) 1.4 (0.0-7.0) % Baso % (Auto) 0.8 (0.0-3.0) % Neut # (Auto) 4.90 (1.7-7.0) K/uL Lymph # (Auto) 1.20 (0.90-2.90) K/uL [place] # (Auto) 0.30 (0.00-0.90) K/UL Eos # (Auto) 0.09 (0.00-0.50) K/uL Baso # (Auto) 0.05 (0.00-0.30) K/uL Abs Immat Gran (auto) 0.02 (0.00-0.30) K/uL Imm/Tot Granulo (auto) 0.3 % Sodium 136 (135-149) mmol/L Potassium 3.8 (3.6-5.1) mmol/L Chloride 99 (96-114) mmol/L Carbon Dioxide 27 (20-32) mmol/L Anion Gap 10 (7-15) mEq/L BUN 9 (7-30) mg/dL Creatinine 0.6 (0.5-1.5) mg/dL Estimated Creat Clear 35.52 Estimated GFR 88 ml/min Glucose 107 (60-115) mg/dL Calcium 9.4 (8.4-10.6) mg/dL Magnesium 2.0 (1.5-2.6) mg/dL Total Bilirubin 1.5 (0.1-1.5) mg/dL Direct Bilirubin 0.8 H (0.0-0.5) mg/dL AST 885 H (12-35) U/L ALT 354 H (4-35) U/L Alkaline Phosphatase 110 (40-150) U/L Troponin I < 0.01 L (0.01-0.04) ng/mL NT-Pro-B Natriuret Pep 502 pg/mL Total Protein 7.5 (6.0-8.3) g/dL Albumin 4.7 (3.3-5.0) g/dL Lipase 02077 H (23-300) U/L SARS-CoV-2 (PCR) Negative SARS-CoV-2 (Negative) Influenza Type A (PCR) Negative PCR FLU A (Negative) Influenza Type B (PCR) Negative PCR FLU B (Negative) RSV (PCR) Negative PCR RSV (Negative) Lab Acknowledgement POC Creatinine 0.7 (0.6-1.3) mg/dl POC Troponin I 0.02 (0.01-0.04) ng/ml 01/06/25 01/06/25 Range/Units 12:34 13:29 WBC (4.50-11.00) K/uL RBC (4.00-5.20) m/uL Hgb (12.0-16.0) gm/dL Hct (33.0-51.0) % MCV (80-100) fL MCH (26-34) pg MCHC (32-36) gm/dL RDW Coeff of Nicolasa (11.5-15.5) % Plt Count (140-440) K/uL Neut % (Auto) (42.0-72.0) % Lymph % (Auto) (20-44) % [place] % (Auto) (0.0-11.0) % Eos % (Auto) (0.0-7.0) % Baso % (Auto) (0.0-3.0) % Neut # (Auto) (1.7-7.0) K/uL Lymph # (Auto) (0.90-2.90) K/uL [place] # (Auto) (0.00-0.90) K/UL Eos # (Auto) (0.00-0.50) K/uL Baso # (Auto) (0.00-0.30) K/uL Abs Immat Gran (auto) (0.00-0.30) K/uL Imm/Tot Granulo (auto) % Sodium (135-149) mmol/L Potassium (3.6-5.1) mmol/L Chloride (96-114) mmol/L Carbon Dioxide (20-32) mmol/L Anion Gap (7-15) mEq/L BUN (7-30) mg/dL Creatinine (0.5-1.5) mg/dL Estimated Creat Clear Estimated GFR ml/min Glucose (60-115) mg/dL Calcium (8.4-10.6) mg/dL Magnesium (1.5-2.6) mg/dL Total Bilirubin (0.1-1.5) mg/dL Direct Bilirubin (0.0-0.5) mg/dL AST (12-35) U/L ALT (4-35) U/L Alkaline Phosphatase (40-150) U/L Troponin I (0.01-0.04) ng/mL NT-Pro-B Natriuret Pep pg/mL Total Protein (6.0-8.3) g/dL Albumin (3.3-5.0) g/dL Lipase (23-300) U/L SARS-CoV-2 (PCR) (Negative) Influenza Type A (PCR) (Negative) Influenza Type B (PCR) (Negative) RSV (PCR) (Negative) Lab Acknowledgement Test Added Test Added POC Creatinine (0.6-1.3) mg/dl POC Troponin I (0.01-0.04) ng/ml Imaging Data Chest x-ray: Attestation: I have reviewed the pertinent imaging results. Radiologist's impression: No focal consolidation, effusion or pneumothorax. Cardiac size is within normal limits without pulmonary edema. Scattered calcified lung granulomas are again identified. Dictated by Tom Canales MD @ 01/06/2025 9:57:[address] Chest/Ab/Pelvis: Attestation: I have reviewed the pertinent imaging results. Radiologist's impression: 1. Mild peripancreatic fat stranding compatible with acute interstitial edematous pancreatitis. Correlate with lipase. 2. Similar mild extrahepatic and intrahepatic biliary ductal dilation, which may be due to the reservoir effect in the context of prior cholecystectomy. Correlate with LFTs. Several additional chronic and incidental findings are detailed in the body of the report. Please note that all CT scans at this facility use dose modulation, iterative reconstruction, and/or weight-based dosing when appropriate to reduce radiation dose to as low as reasonably achievable. Dictated by Fidel June MD @ 01/06/2025 12:32:24 PM ECG Data Attestation: I personally reviewed and interpreted this ECG as follows: Prior ECG tracings: available for review Interpretation: Normal sinus rhythm with a rate of 71 beats per minute, bifascicular block, no ST or T-wave abnormalities, normal intervals, normal axis. Appears similar previous EKG on file Discharge Plan Discharge Clinical Impression: Elevated LFTs Pancreatitis Qualifiers: Chronicity: acute Pancreatitis type: unspecified pancreatitis type Acute pancreatitis complication: no infection or necrosis Qualified Code(s): K85.90 - Acute pancreatitis without necrosis or infection, unspecified Patient Disposition: Admitted As Observation Condition: Improved Prescriptions: No Action alendronate 70 mg tablet 70 mg PO .WEDNESDAY Rx Instructions: WEEKLY ON WEDNESDAY amlodipine 5 mg tablet 5 mg PO DAILY hydrochlorothiazide 12.5 mg capsule 12.5 mg PO DAILY rosuvastatin 40 mg tablet 40 mg PO HS potassium chloride 10 mEq tablet,ER particles/crystals 10 meq PO DAILY cholecalciferol (vitamin D3) 75 mcg (3,000 unit) tablet 75 mcg PO DAILY aspirin 81 mg tablet,chewable 81 mg PO DAILY magnesium PO DAILY Rx Instructions: OTC MAGNESIUM Follow Up/Referrals: Ayan Brambila MD [Primary Care Provider] -
[2025-01-06 09:41] LABS: Slide Review Reflex No
[2025-01-06 09:41] LABS: Creatinine, Point-of-Care* 0.7 mg/dl (0.6-1.3)
[2025-01-06] MEDS: HYDROCORTISONE SOD SUCCINATE 50 MG/ML inj 200 MG IVP (09:48)
[2025-01-06] MEDS: diphenhydrAMINE 50 MG/ML inj IVP (09:48)
[2025-01-06] MEDS: fentaNYL 100 MCG/2 ML inj 50 MCG IVP ×2 (09:57→15:08)
[2025-01-06 10:00] LABS: Chloride* 99 mmol/L (96-114); Potassium* 3.8 mmol/L (3.6-5.1); Sodium* 136 mmol/L (135-149)
[2025-01-06 10:03] LABS: Anion Gap 10 mEq/L (7-15); Blood Urea Nitrogen* 9 mg/dL (7-30); Calcium* 9.4 mg/dL (8.4-10.6); Carbon Dioxide* 27 mmol/L (20-32); Creatinine* 0.6 mg/dL (0.5-1.5); Est. Creatinine Clearance* 35.52; Estimated Glomerular Filt Rate 88 ml/min; Glucose* 107 mg/dL (60-115)
[2025-01-06 10:13] LABS: PCR FLU A Negative PCR FLU A (Negative); PCR FLU B Negative PCR FLU B (Negative); PCR RSV Negative PCR RSV (Negative); SARS PCR* Negative SARS-CoV-2 (Negative)
[2025-01-06 10:16] LABS: NT Pro B Type NatriureticPept* 502 pg/mL; Troponin I* < 0.01 ng/mL (0.01-0.04)
[2025-01-06 13:27] LABS: Lipase* 18418 U/L (23-300)
[2025-01-06 13:41] LABS: Albumin* 4.7 g/dL (3.3-5.0)
[2025-01-06 13:44] LABS: Alanine Aminotransferase* 354 U/L (4-35); Alkaline Phosphatase* 110 U/L (40-150); Bilirubin Direct* 0.8 mg/dL (0.0-0.5); Bilirubin Total* 1.5 mg/dL (0.1-1.5); Total Protein* 7.5 g/dL (6.0-8.3)
[2025-01-06 13:53] LABS: Aspartate Amino Transferase* 885 U/L (12-35)
--- NOTE | 2025-01-06 14:33 | CRLHL7_ITS ---
For Patients: As a result of the Cures Act, medical imaging exams and procedure reports are released immediately into your electronic medical record. You may view this report before your referring provider. If you have questions, please contact your health care provider. INDICATION: Pancreatic inflammation. COMPARISON: CT scan of the chest, abdomen, and pelvis dated [address] scan of the abdomen and pelvis dated 27 June 2019. TECHNIQUE: MRCP with heavily T2 weighted 2D MRCP images. T2 weighted images also performed. No gadolinium administered. FINDINGS: No focal abnormalities identified in the visualized portions of the liver, spleen, and adrenal glands. 8 mm cyst in the interpolar region of the right kidney. The kidneys are otherwise unremarkable. No hydronephrosis. Diffuse pancreatic/peripancreatic edema. Cholecystectomy. Mild intra and extrahepatic bile duct dilation with the common bile duct measuring 1.2 cm. No filling defects in the biliary system. Normal size of the main pancreatic duct. Impression : 1. Acute pancreatitis. 2. Mild bile duct dilation. This could be secondary to a recently passed stone. No current choledocholithiasis. Dictated by Arturo Phan MD @ 01/07/2025 8:29:05 AM (Electronically Signed)
[2025-01-06 15:40] LABS: Ammonia* < 8.7 umol/L (13.1-30.0)
--- NOTE | 2025-01-06 19:18 | P.IMHP_ITS ---
Hospitalist- H&P: HPI History of Present Illness Date Seen: 01/06/25 Chief complaint: chest/back pain Narrative: Abby David is a 84 year old female with past medical history of coronary artery disease status post PCI, history of an MT, aortic valve replacement, history of alcohol use disorder and history of cholecystectomy who presents with severe abdominal pain. Her pain is periumbilical and started mainly this morning. Patient denies any history of pancreatitis before. She denies fevers, nausea or vomiting. At the ED patient was hemodynamically stable, CT abdomen and pelvis showed acute pancreatitis, lipase was severely elevated more than 18 K. her labs are showing transaminitis with AST in the 800s, direct bilirubin elevated mildly. Review of Systems Status of ROS: Reports: 6 or more systems reviewed and unremarkable except as noted in History and below PFSH PFS Social History What is your current living situation?: I presently have a place to live Problems where you live: no known problems Problems where you live details: N/A In the past 12 months, utilities in danger of being shut off: no In past 12 months, lack of transportation kept you from medical appts, meetings, work, or getting things needed for daily living: no In the past 12 mos, have been you worried that your food would run out before you had money to buy more?: never true In the past 12 mos, the food you bought just didn't last and you didn't have money to buy more?: never true Highest level of school completed/degree received: Associate degree: occup ational, technical, vocational program Smoking Status: Former smoker Do you use any of these nicotine containing products: None How often do you have a drink containing alcohol: 2-3 times a week Alcohol type: beer How many standard drinks containing alcohol do you have on a typical day: 1 or 2 How often do you have six or more drinks on one occasion: Never AUDIT-C Alcohol total score: 3 Non-prescribed substance use: denies use Caffeine: No How often does anyone, including family, friends and others, physically hurt you : never How often does anyone, including family, friends and others, insult or talk down to you: never How often does anyone, including family, friends and others, threaten you with harm: never How often does anyone, including family, friends and others, scream or curse at you: never service: No Meds Home Medications and Allergies Home Medications ?Medication ?Instructions ?Recorded ?Confirmed ?Type alendronate 70 mg tablet 70 mg PO .Wednesday07/13/24 01/06/25 History amlodipine 5 mg tablet 5 mg PO DAILY 07/13/24 01/06/25 History hydrochlorothiazide 12.5 mg capsule 12.5 mg PO DAILY 07/13/24 01/06/25 History potassium chloride 10 mEq 10 meq PO DAILY 07/13/24 01/06/25 History tablet,extended release(part/cryst) rosuvastatin 40 mg tablet 40 mg PO HS 07/13/24 01/06/25 History aspirin 81 mg chewable tablet 81 mg PO DAILY 01/06/25 01/06/25 History cholecalciferol (vitamin D3) 75 75 mcg PO DAILY 01/06/25 01/06/25 History mcg (3,000 unit) tablet magnesium PO DAILY 01/06/25 History Allergies Allergy/AdvReac Type Severity Reaction Status Date / Time Iodinated Contrast Media Allergy Unknown Edema Verified 01/06/25 10:16 Exam Narrative: Exam Narrative: Physical exam GENERAL: no acute distress. HEAD AND NECK: Atraumatic, normocephalic CARDIOVASCULAR: RRR. Normal S1, S2. No murmurs. RESPIRATORY: Clear to auscultation B/L. Good air entry B/L. No wheezes or rhonchi. GASTROINTESTINAL: Not distended, tender to palpation in the periumbilical area but no rigidity or guarding NEUROLOGY: Alert, awake, oriented X 3. Normal speech. PSYCH: Normal mood, normal affect. Const: Vital Signs, click to edit/add: Vital Signs - 24 hr 01/06/25 09:06 01/06/25 09:18 01/06/25 09:26 Temperature 98.4 F Pulse Rate 76 73 Pulse Rate [Pulse Oximeter] 67 Respiratory Rate 12 14 12 Blood Pressure 147/81 H 131/59 L Blood Pressure [Ri ght Arm] Blood Pressure [Ri ght Upper Arm] 136/61 Pulse Oximetry 99 98 99 Oxygen Delivery Me thod Room Air 01/06/25 09:31 01/06/25 09:34 01/06/25 09:41 Temperature Pulse Rate 66 62 66 Pulse Rate [Pulse Oximeter] Respiratory Rate 17 18 12 Blood Pressure 80/40 L 62/35 L 87/58 L Blood Pressure [Ri ght Arm] Blood Pressure [Ri ght Upper Arm] Pulse Oximetry 96 96 97 Oxygen Delivery Me thod 01/06/25 09:48 01/06/25 09:55 01/06/25 10:02 Temperature Pulse Rate 68 72 70 Pulse Rate [Pulse Oximeter] Respiratory Rate 20 12 14 Blood Pressure 90/71 111/68 96/58 L Blood Pressure [Ri ght Arm] Blood Pressure [Ri ght Upper Arm] Pulse Oximetry 98 95 92 Oxygen Delivery Me thod 01/06/25 10:17 01/06/25 10:31 01/06/25 10:47 Temperature Pulse Rate 72 74 70 Pulse Rate [Pulse Oximeter] Respiratory Rate 18 12 19 Blood Pressure 94/48 L 98/71 96/59 L Blood Pressure [Ri ght Arm] Blood Pressure [Ri ght Upper Arm] Pulse Oximetry 95 93 93 Oxygen Delivery Me thod 01/06/25 11:02 01/06/25 11:32 01/06/25 11:47 Temperature Pulse Rate 75 80 75 Pulse Rate [Pulse Oximeter] Respiratory Rate 14 21 20 Blood Pressure 102/68 106/45 L 101/38 L Blood Pressure [Ri ght Arm] Blood Pressure [Ri ght Upper Arm] Pulse Oximetry 95 94 95 Oxygen Delivery Me thod 01/06/25 12:01 01/06/25 12:31 01/06/25 12:46 Temperature Pulse Rate 76 77 78 Pulse Rate [Pulse Oximeter] Respiratory Rate 15 20 22 Blood Pressure 104/43 L 97/62 113/90 H Blood Pressure [Ri ght Arm] Blood Pressure [Ri ght Upper Arm] Pulse Oximetry 97 95 95 Oxygen Delivery Me thod 01/06/25 13:01 01/06/25 13:31 01/06/25 14:02 Temperature Pulse Rate 82 86 91 Pulse Rate [Pulse Oximeter] Respiratory Rate 20 15 144 H Blood Pressure 107/83 105/55 L 123/50 L Blood Pressure [Ri ght Arm] Blood Pressure [Ri ght Upper Arm] Pulse Oximetry 95 94 94 Oxygen Delivery Me thod Room Air 01/06/25 14:31 01/06/25 14:46 01/06/25 16:42 Temperature 97.9 F Pulse Rate 93 95 Pulse Rate [Pulse Oximeter] 96 Respiratory Rate 14 15 16 Blood Pressure 105/67 121/59 L Blood Pressure [Ri ght Arm] 113/47 L Blood Pressure [Ri ght Upper Arm] Pulse Oximetry 95 96 98 Oxygen Delivery Me thod Room Air Hospitalist - H&P: Result Labs Labs: Short CBC 01/06/25 Range/Units 09:15 WBC 6.57 (4.50-11.00) K/uL Hgb 13.5 (12.0-16.0) gm/dL Hct 39.4 (33.0-51.0) % Plt Count 213 (140-440) K/uL BMP 01/06/25 09:15 Sodium 136 Potassium 3.8 Chloride 99 Carbon Dioxide 27 BUN 9 Creatinine 0.6 Glucose 107 Calcium 9.4 Cardiac Enzymes 01/06/25 Range/Units 09:15 Troponin I < 0.01 L (0.01-0.04) ng/mL Liver Function 01/06/25 Range/Units 09:15 Total Bilirubin 1.5 (0.1-1.5) mg/dL Direct Bilirubin 0.8 H (0.0-0.5) mg/dL AST 885 H (12-35) U/L ALT 354 H (4-35) U/L Alkaline Phosphatase 110 (40-150) U/L Albumin 4.7 (3.3-5.0) g/dL Imaging CT scan - abdomen: Radiologist's impression: Time spent: Today I spent 75 minutes seeing the patient, discussing the patient with ER staff, reviewing Expanse and EPIC notes/diagnostics, discussing the care plan with our care time that includes social work, PT/OT, pharmacy, RT, senior living and documenting my impressions and plan in the medical record. Assessment and Plan Assessment and plan (1) Pancreatitis: Problem comment: -clinical, imaging, labs support the diagnosis -first-time episode -patient is without her gallbladder, surgically removed -elevated LFTs -patient got 2 L of IV fluids at the ED, ordered maintenance at 150 mL/hour -pain management -ordered MRCP , pending report Status: Acute (2) Elevated LFTs: Problem comment: As above Status: Acute (3) H/O ETOH abuse: Problem comment: Patient states that she reduced her drinking a lot recently Status: Acute (4) Aortic valve replaced: Status: Acute (5) History of myocardial infarction: Status: Acute (6) CAD (coronary artery disease): Status: Acute (7) History of cholecystectomy: Status: Acute Total Time Spent Total Time Spent: Time spent: Today I spent 75 minutes seeing the patient, discussing the patient with ER staff, reviewing Expanse and EPIC notes/diagnostics, discussing the care plan with our care time that includes social work, PT/OT, pharmacy, RT, senior living and documenting my impressions and plan in the medical record.
[2025-01-06] MEDS: 0.9 % SODIUM CHLORIDE 1000 ml 1,000 ML 150 ML IV (19:58)
[2025-01-06] MEDS: MORPHINE 4 MG/ML INJ IVP ×2 (19:58→23:26)
[2025-01-06] MEDS: ENOXAPARIN 30 MG/0.3ML INJ SUBCUT (20:57)
[2025-01-06] MEDS: ROSUVASTATIN CALCIUM 10 MG TABLET 40 MG PO (20:58)
[2025-01-06] MEDS: THIAMINE 100 MG TABLET PO (20:58)
[2025-01-06] MEDS: SODIUM CHLORIDE 0.9 % (FLUSH) 10 ML SYRINGE 5 ML IVF (20:59)
[2025-01-07] VITALS (11 sets, daily range): BP systolic 116–137; BP diastolic 45–73; PULSE 81–95; RESP 16–20; TEMP 36.8–37.1; O2SAT 90–94
[2025-01-07] MEDS: MORPHINE 4 MG/ML INJ IVP (03:22)
[2025-01-07] MEDS: 0.9 % SODIUM CHLORIDE 1000 ml 1,000 ML 150 ML IV ×3 (03:22→15:46)
--- NOTE | 2025-01-07 05:22 | PC.NURSE ---
[id number]: Patient pleasant and cooperative. SBA w/walker. Tolerates activity well. NPO. Using swabs for dry mouth. Afebrile. Pain managed w/PRN medication. CIWAs unremarkable. Rested well during noc.
[2025-01-07 07:13] LABS: Lactate* 0.9 mmol/L (0.5-1.9)
[2025-01-07 07:18] LABS: Hematocrit 33.8 % (33.0-51.0); Hemoglobin* 11.5 gm/dL (12.0-16.0); Mean Corpuscular HGB Conc 34 gm/dL (32-36); Mean Corpuscular Hemoglobin 34 pg (26-34); Mean Corpuscular Volume 99 fL (80-100); Platelet Count* 152 K/uL (140-440); Red Blood Count 3.41 m/uL (4.00-5.20); White Blood Count* 12.92 K/uL (4.50-11.00)
[2025-01-07 07:23] LABS: Slide Review Reflex No
[2025-01-07 07:30] LABS: INR 1.11 (0.91-1.10); Prothrombin Time 15.1 Seconds
[2025-01-07 07:36] LABS: Albumin* 3.7 g/dL (3.3-5.0); Chloride* 106 mmol/L (96-114); Potassium* 3.1 mmol/L (3.6-5.1); Sodium* 137 mmol/L (135-149)
[2025-01-07 07:38] LABS: Anion Gap 8 mEq/L (7-15); Blood Urea Nitrogen* 9 mg/dL (7-30); Carbon Dioxide* 23 mmol/L (20-32); Creatinine* 0.5 mg/dL (0.5-1.5); Est. Creatinine Clearance* 35.52; Estimated Glomerular Filt Rate 92 ml/min
[2025-01-07 07:39] LABS: Alkaline Phosphatase* 96 U/L (40-150); Bilirubin Total* 3.4 mg/dL (0.1-1.5); Calcium* 7.9 mg/dL (8.4-10.6); Glucose* 99 mg/dL (60-115); Magnesium* 1.9 mg/dL (1.5-2.6); Total Protein* 6.1 g/dL (6.0-8.3)
[2025-01-07 07:54] LABS: Alanine Aminotransferase* 1601 U/L (4-35)
[2025-01-07 08:04] LABS: Aspartate Amino Transferase* 1771 U/L (12-35)
[2025-01-07] MEDS: POTASSIUM CHLORIDE 10 MEQ CAPSULE ER PO (09:13)
[2025-01-07] MEDS: ASPIRIN 81 MG TAB.CHEW PO (09:13)
[2025-01-07] MEDS: FOLIC ACID 1 MG TABLET PO (09:13)
[2025-01-07 15:45] LABS: Gamma Glutamyl Transpeptidase* 503 U/L (8-55)
[2025-01-07] MEDS: POTASSIUM BICARB 25 MEQ EFFERVESCENT TAB PO ×2 (15:46→17:03)
[2025-01-07 15:50] LABS: Acetaminophen* < 10.0 ug/mL (10.0-30.0)
--- NOTE | 2025-01-07 17:39 | P.IMPN_ITS ---
Progress Note: A&P Assessment and plan (1) Pancreatitis: Problem details: -clinical, imaging, labs support the diagnosis -first-time episode -patient is without her gallbladder, surgically removed -elevated LFTs -patient got 2 L of IV fluids at the ED, ordered maintenance at 150 mL/hour -pain management -ordered MRCP , pending report - 01/07 MRCP results as above. Dilated CBD, ? passed retained stone - I think unlikely at this point, but on differential. Will add triglycerides to lab order. Suspect alcoholic pancreatitis. Continue IVF at 150cc/hr. Start clear liq diet. Status: Acute (2) Hepatitis: Problem details: - I checked back in [facility] and last liver panel was okay in 2019. - LFTs climbing. INR not elevated. Ammonia level not elevated. RSV negative. Does not appear volume overloaded to cause liver congestion. In the thousands, it is possibly not alcohol related. Check acute hepatitis panel, acetaminophen level (add to blood drawn on presentation). I have reviewed CT abd/pelvis and MRCP results. If LFTs continue to climb, will need to consider transfer for GI consult and possible liver biopsy. Status: Acute (3) History of cholecystectomy: Status: Chronic (4) H/O ETOH abuse: Problem details: Patient states that she reduced her drinking a lot recently Status: Acute (5) Aortic valve replaced: Problem details: - TAVR 09/09/20 for severe - 23 mm Shannon 3 Ultra bioprosthesis Status: Chronic (6) CAD (coronary artery disease): Problem details: - stable, asymptomatic - per cardiology note 10/10/24 CAD with DESx2 to LAD in 2016 (NSTEMI presentation) No severe coronary lesion on 08/2020 pre-T[address] CT Status: Chronic (7) Hypokalemia: Status: Acute Time Spent With Patient Total time spent: Today I spent 50minutes seeing the patient, reviewing [facility] and [facility] notes/diagnostics/labs, discussing the care plan with our care team that includes social work, PT/OT, pharmacy, RT, custodial and documenting my impressions and plan in the medical record. Subjective Time Seen by Provider: 09:36 Date Seen: 01/07/25 Interval history: aTnya feels a bit better, but still has epigastric pain. She is thirsty. Denies nausea, vomiting. Exam Narrative: Exam Narrative: General: No acute distress. Awake, alert, oriented. No pallor. No jaundice. Oropharynx: Clear. Mucous membranes moist. Cardiovascular: Regular rate and rhythm. No murmurs, gallops, or rubs. Respiratory: Clear to auscultation bilaterally. No wheezes or crackles. Abdomen: Bowel sounds present. Soft, nondistended, tender in the epigastrium with no rebound tenderness or guarding, abdomen is otherwise nontender. Extremities: No lower extremity edema. Const: Vital Signs, click to edit/add: Vital Signs - 24 hr 01/06/25 20:02 01/06/25 20:03 01/06/25 23:00 Temperature 98.3 F 98.3 F Pulse Rate 88 Pulse Rate [Pulse Oximeter] 92 92 Respiratory Rate 20 20 Blood Pressure [Ri ght Arm] 139/57 L 139/57 L Pulse Oximetry 93 93 Oxygen Delivery Me thod Room Air Room Air 01/06/25 23:18 01/07/25 03:18 01/07/25 03:18 Temperature 98.4 F 98.4 F 98.4 F Pulse Rate Pulse Rate [Pulse Oximeter] 97 95 95 Respiratory Rate 20 18 18 Blood Pressure [Ri ght Arm] 141/65 H 132/61 132/61 Pulse Oximetry 95 94 94 Oxygen Delivery Me thod Room Air Room Air Room Air 01/07/25 07:00 01/07/25 07:29 01/07/25 11:00 Temperature 98.7 F 98.3 F Pulse Rate 87 Pulse Rate [Pulse Oximeter] 89 86 Respiratory Rate 18 20 Blood Pressure [Ri ght Arm] 127/64 137/58 L Pulse Oximetry 91 94 Oxygen Delivery Me thod Room Air Room Air 01/07/25 14:17 01/07/25 15:00 01/07/25 15:00 Temperature 98.4 F 98.4 F Pulse Rate 90 Pulse Rate [Pulse Oximeter] 88 88 Respiratory Rate 16 16 Blood Pressure [Ri ght Arm] 116/56 L 116/56 L Pulse Oximetry 94 94 Oxygen Delivery Me thod Room Air Room Air Labs Labs: Laboratory Results - last 24 hr 01/06/25 01/07/25 01/07/25 09:15 06:10 15:06 WBC 12.92 H RBC 3.41 L Hgb 11.5 L Hct 33.8 MCV 99 MCH 34 MCHC 34 Plt Count 152 INR 1.11 H Sodium 137 Potassium 3.1 L Chloride 106 Carbon Dioxide 23 Anion Gap 8 BUN 9 Creatinine 0.5 Estimated Creat Clear 35.52 Estimated GFR 92 Glucose 99 Lactate 0.9 Calcium 7.9 L Magnesium 1.9 Total Bilirubin 3.4 H Direct Bilirubin 2.0 H GGT 503 H AST 1771 H ALT 1601 H Alkaline Phosphatase 96 Total Protein 6.1 Albumin 3.7 Acetaminophen < 10.0 L Lab Acknowledgement Test Added Ordering Physician: Arben Almanza D.O. Date of Service: 01/06/25 Procedure(s): MR abdomen wo con Accession Number(s): [id number] cc: Arben Almanza D.O.; Ayan Brambila M.D.~ For Patients: As a result of the Cures Act, medical imaging exams and procedure reports are released immediately into your electronic medical record. You may view this report before your referring provider. If you have questions, please contact your health care provider. INDICATION: Pancreatic inflammation. COMPARISON: CT scan of the chest, abdomen, and pelvis dated [address] scan of the abdomen and pelvis dated 27 June 2019. TECHNIQUE: MRCP with heavily T2 weighted 2D MRCP images. T2 weighted images also performed. No gadolinium administered. FINDINGS: No focal abnormalities identified in the visualized portions of the liver, spleen, and adrenal glands. 8 mm cyst in the interpolar region of the right kidney. The kidneys are otherwise unremarkable. No hydronephrosis. Diffuse pancreatic/peripancreatic edema. Cholecystectomy. Mild intra and extrahepatic bile duct dilation with the common bile duct measuring 1.2 cm. No filling defects in the biliary system. Normal size of the main pancreatic duct. Impression : 1. Acute pancreatitis. 2. Mild bile duct dilation. This could be secondary to a recently passed stone. No current choledocholithiasis. Dictated by Arturo Phan MD @ 01/07/2025 8:29:05 AM (Electronically Signed)
[2025-01-07 17:59] LABS: Triglycerides* 97 mg/dL (40-149)
--- NOTE | 2025-01-07 18:47 | PC.NURSE ---
Shift Summary: Patient pleasant and cooperative. Up with SBA, walker and gait belt. Vitals stable and WNL, afebrile, o2 sats >90% on RA. Describes pain as sore and achy today, denied need for medication for pain. Advanced to clear liquids and tolerating well. Following potassium bicarb patient stated she had some epigastric cramping which she stated was tolerable, has since resolved. Passing gas, small BM this morning per patient report.
[2025-01-07] MEDS: MORPHINE 2 MG/ML inj IVP (20:15)
[2025-01-07] MEDS: THIAMINE 100 MG TABLET PO (20:15)
[2025-01-07] MEDS: SODIUM CHLORIDE 0.9 % (FLUSH) 10 ML SYRINGE 5 ML IVF (20:15)
[2025-01-07] MEDS: ENOXAPARIN 30 MG/0.3ML INJ SUBCUT (20:16)
[2025-01-07] MEDS: 0.9 % SODIUM CHLORIDE 1000 ml 1,000 ML 75 ML IV (23:00)
[2025-01-08] VITALS (14 sets, daily range): BP systolic 130–174; BP diastolic 65–92; PULSE 85–115; RESP 18–20; TEMP 36.6–36.9; O2SAT 90–95
[2025-01-08 06:34] LABS: Basophils Absolute Auto 0.03 K/uL (0.00-0.30); Basophils Percent Auto 0.3 % (0.0-3.0); Eosinophils Absolute Auto 0.05 K/uL (0.00-0.50); Eosinophils Percent Auto 0.6 % (0.0-7.0); Hematocrit 31.9 % (33.0-51.0); Hemoglobin* 10.9 gm/dL (12.0-16.0); Immature Granulocytes Abs Auto 0.03 K/uL (0.00-0.30); Immature Granulocytes Pct Auto 0.3 %; Mean Corpuscular HGB Conc 34 gm/dL (32-36); Mean Corpuscular Hemoglobin 33 pg (26-34); Mean Corpuscular Volume 97 fL (80-100); Monocytes Percent Auto 4.1 % (0.0-11.0); Neutrophils Percent Auto 87.7 % (42.0-72.0); Platelet Count* 125 K/uL (140-440); RDW Coefficient of Variation % 12.8 % (11.5-15.5); White Blood Count* 8.88 K/uL (4.50-11.00)
[2025-01-08 06:45] LABS: Slide Review Reflex No
[2025-01-08 06:51] LABS: Albumin* 3.5 g/dL (3.3-5.0)
[2025-01-08 06:52] LABS: Chloride* 104 mmol/L (96-114); INR 1.24 (0.91-1.10); Prothrombin Time 16.5 Seconds; Sodium* 134 mmol/L (135-149)
[2025-01-08 06:54] LABS: Anion Gap 10 mEq/L (7-15); Bilirubin Total* 2.2 mg/dL (0.1-1.5); Blood Urea Nitrogen* 9 mg/dL (7-30); Carbon Dioxide* 20 mmol/L (20-32); Creatinine* 0.5 mg/dL (0.5-1.5); Est. Creatinine Clearance* 35.52; Estimated Glomerular Filt Rate 92 ml/min; Total Protein* 6.1 g/dL (6.0-8.3)
[2025-01-08 06:55] LABS: Alkaline Phosphatase* 123 U/L (40-150); Aspartate Amino Transferase* 515 U/L (12-35); Calcium* 7.9 mg/dL (8.4-10.6); Glucose* 73 mg/dL (60-115)
[2025-01-08 07:03] LABS: Alanine Aminotransferase* 877 U/L (4-35); Potassium* 2.8 mmol/L (3.6-5.1)
[2025-01-08] MEDS: FOLIC ACID 1 MG TABLET PO (08:43)
[2025-01-08] MEDS: SODIUM CHLORIDE 0.9 % (FLUSH) 10 ML SYRINGE 5 ML IVF ×2 (08:43→20:02)
[2025-01-08] MEDS: ASPIRIN 81 MG TAB.CHEW PO (08:43)
[2025-01-08] MEDS: POTASSIUM CHLORIDE 10 MEQ CAPSULE ER PO (08:43)
--- NOTE | 2025-01-08 09:12 | PM.IMPN1 ---
Progress Note: A&P Assessment and plan (1) Pancreatitis: Problem details: - first episode: + CT, elevated lipase, s/p cholecystectomy 2018 - MRCP 01/07 revealed mild bile duct dilation, possibly 2/2 recently passed stone, no current choledocholithiasis (possible recent stone) - triglycerides pending - LFTs improving, patient hungry 01/08, continue to advance diet Status: Acute (2) Hepatitis: Problem details: - last hepatic panel in [facility] was 2018 and normal - 01/07: LFTs increasing, normal ammonia and INR. Negative APAP level, hepatitis panel pending - 01/08: LFTs improving, patient clinically improved, will advance diet and continue to follow Status: Acute (3) History of cholecystectomy: Problem details: - 2018 Status: Chronic (4) Hypokalemia: Problem details: - replace and follow, Magnesium 1.9 Status: Acute (5) H/O ETOH abuse: Problem details: - per patient, having 1-2 drinks/week, was previously drinking more Status: Acute (6) Aortic valve replaced: Problem details: - TAVR 09/09/20 for severe - 23 mm Shannon 3 Ultra bioprosthesis Status: Chronic (7) CAD (coronary artery disease): Problem details: - stable, asymptomatic - per cardiology note 10/10/24 CAD with DESx2 to LAD in 2016 (NSTEMI presentation) No severe coronary lesion on 08/2020 pre-TAVR CT Status: Chronic Plan - per above - advance diet, follow LFTs and lytes - patient did not want me to call and update any family members, she'll do it herself - possibly home 1-2 days pending clinical course - 52 minutes spent today: seeing patient, multidisciplinary team collaboration, review of local medical records + [facility] Subjective Date Seen: 01/08/25 Interval history: Abby Martínez was admitted to the hospital on 01/06 for pancreatitis. Source unclear: possible CBD stone, ETOH use, idiopathic. Feeling better today, would like to advance diet. Working with therapies. Potassium low, tolerating replacement. Exam Narrative: Exam Narrative: GEN: Alert and oriented, answering questions appropriately HEENT: EOMIs bilaterally, no scleral icterus CV: Sinus arrhythmia, no concerning murmurs R: LCTA bilaterally without concerning wheezing Ab: Soft, mild distention, tolerates palpation, negative Ely's sign Ext: wwp, no concerning edema Skin: No concerning skin lesions or rashes Neuro: No focal deficits or resting tremor Psych: Appropriate Const: Vital Signs, click to edit/add: Vital Signs - 24 hr 01/07/25 11:00 01/07/25 14:17 01/07/25 15:00 Temperature 98.3 F 98.4 F Pulse Rate 90 Pulse Rate [Pulse Oximeter] 86 88 Respiratory Rate 20 16 Blood Pressure [Ri ght Arm] 137/58 L 116/56 L Pulse Oximetry 94 94 Oxygen Delivery Me thod Room Air Room Air 01/07/25 15:00 01/07/25 20:04 01/07/25 20:06 Temperature 98.4 F 98.2 F 98.2 F Pulse Rate Pulse Rate [Pulse Oximeter] 88 93 93 Respiratory Rate 16 18 18 Blood Pressure [Ri ght Arm] 116/56 L 133/73 133/73 Pulse Oximetry 94 91 91 Oxygen Delivery Ga thod Room Air Room Air Room Air 01/07/25 22:11 01/07/25 23:06 01/07/25 23:16 Temperature 98.4 F 98.4 F Pulse Rate 81 Pulse Rate [Pulse Oximeter] 87 87 Respiratory Rate 18 18 Blood Pressure [Ri ght Arm] 123/45 L 123/45 L Pulse Oximetry 90 90 Oxygen Delivery Ga thod Room Air Room Air 01/08/25 03:00 01/08/25 04:00 01/08/25 07:30 Temperature 98.2 F 98.2 F Pulse Rate Pulse Rate [Pulse Oximeter] 102 H 102 H 85 Respiratory Rate 20 20 18 Blood Pressure [Ri ght Arm] 137/85 137/85 Pulse Oximetry 90 90 Oxygen Delivery Ga thod Room Air Room Air 01/08/25 07:30 01/08/25 08:00 01/08/25 08:20 Temperature 98.3 F 98.3 F Pulse Rate 90 Pulse Rate [Pulse Oximeter] 85 85 Respiratory Rate 18 18 Blood Pressure [Ri ght Arm] 130/65 130/65 Pulse Oximetry 94 94 Oxygen Delivery Ga thod Room Air Room Air Labs Labs: Laboratory Results - last 24 hr 01/06/25 01/07/25 01/07/25 09:15 15:06 17:46 WBC RBC Hgb Hct MCV MCH MCHC RDW Coeff of Nicolasa Plt Count Neut % (Auto) Lymph % (Auto) [place] % (Auto) Eos % (Auto) Baso % (Auto) Neut # (Auto) Lymph # (Auto) [place] # (Auto) Eos # (Auto) Baso # (Auto) Abs Immat Gran (auto) Imm/Tot Granulo (auto) INR Sodium Potassium Chloride Carbon Dioxide Anion Gap BUN Creatinine Estimated Creat Clear Estimated GFR Glucose Calcium Total Bilirubin Direct Bilirubin GGT 503 H AST ALT Alkaline Phosphatase Total Protein Albumin Triglycerides 97 Acetaminophen < 10.0 L Lab Acknowledgement Test Added Test Added 01/08/25 06:21 WBC 8.88 RBC 3.30 L Hgb 10.9 L Hct 31.9 L MCV 97 MCH 33 MCHC 34 RDW Coeff of Nicolasa 12.8 Plt Count 125 L Neut % (Auto) 87.7 H Lymph % (Auto) 7.0 L [place] % (Auto) 4.1 Eos % (Auto) 0.6 Baso % (Auto) 0.3 Neut # (Auto) 7.80 H Lymph # (Auto) 0.60 L [place] # (Auto) 0.40 Eos # (Auto) 0.05 Baso # (Auto) 0.03 Abs Immat Gran (auto) 0.03 Imm/Tot Granulo (auto) 0.3 INR 1.24 H Sodium 134 L Potassium 2.8 L* Chloride 104 Carbon Dioxide 20 Anion Gap 10 BUN 9 Creatinine 0.5 Estimated Creat Clear 35.52 Estimated GFR 92 Glucose 73 Calcium 7.9 L Total Bilirubin 2.2 H Direct Bilirubin 1.0 H GGT AST 515 H ALT 877 H Alkaline Phosphatase 123 Total Protein 6.1 Albumin 3.5 Triglycerides Acetaminophen Lab Acknowledgement
[2025-01-08] MEDS: POTASSIUM BICARB 25 MEQ EFFERVESCENT TAB 50 MEQ PO ×2 (09:30→12:05)
[2025-01-08 11:19] LABS: C.Difficile Negative (Negative); CDIFFEPI 027 PRESUMPTIVE NEGATIVE (Negative)
[2025-01-08 12:03] LABS: Cholesterol* 115 mg/dL (90-199); Triglycerides* 96 mg/dL (40-149)
--- NOTE | 2025-01-08 13:16 | PC.NURSE ---
Patient denies pain and vital signs remain stable. Scored 0 on CIWA. Had 2 loose BMs. Stool sample collected and patient is C. Diff negative. Ambulates standby, gait belt and walker. Advanced to regular diet and tolerated meals well. Walked the waterman x2.
[2025-01-08] MEDS: ENOXAPARIN 30 MG/0.3ML INJ SUBCUT (20:01)
[2025-01-08] MEDS: THIAMINE 100 MG TABLET PO (20:02)
--- NOTE | 2025-01-08 23:23 | PC.NURSE ---
Patient up for walk in the waterman. Tolerated a regular diet for dinner. Denies any pain.
[2025-01-09 00:57] VITALS: PULSE 88
[2025-01-09 03:54] VITALS: BP 136/58; PULSE 94; RESP 20; O2SAT 92
[2025-01-09 03:56] VITALS: BP 136/58; PULSE 94; RESP 20; TEMP 36.7; O2SAT 92
[2025-01-09 06:30] LABS: Basophils Percent Auto 0.2 % (0.0-3.0); Eosinophils Percent Auto 0.4 % (0.0-7.0); Hematocrit 34.7 % (33.0-51.0); Hemoglobin* 12.3 gm/dL (12.0-16.0); Immature Granulocytes Pct Auto 0.4 %; Lymphocytes Percent Auto 6.7 % (20-44); Mean Corpuscular HGB Conc 35 gm/dL (32-36); Mean Corpuscular Hemoglobin 33 pg (26-34); Mean Corpuscular Volume 94 fL (80-100); Monocytes Percent Auto 7.7 % (0.0-11.0); Neutrophils Percent Auto 84.6 % (42.0-72.0); Platelet Count* 153 K/uL (140-440); RDW Coefficient of Variation % 12.4 % (11.5-15.5); White Blood Count* 11.44 K/uL (4.50-11.00)
[2025-01-09 06:36] LABS: Slide Review Reflex No
[2025-01-09 06:54] LABS: Chloride* 99 mmol/L (96-114); Sodium* 133 mmol/L (135-149)
[2025-01-09 06:57] LABS: Alkaline Phosphatase* 140 U/L (40-150); Anion Gap 13 mEq/L (7-15); Aspartate Amino Transferase* 152 U/L (12-35); Bilirubin Direct* 0.6 mg/dL (0.0-0.5); Bilirubin Total* 1.5 mg/dL (0.1-1.5); Blood Urea Nitrogen* 6 mg/dL (7-30); Calcium* 8.6 mg/dL (8.4-10.6); Carbon Dioxide* 21 mmol/L (20-32); Creatinine* 0.4 mg/dL (0.5-1.5); Est. Creatinine Clearance* 35.52; Estimated Glomerular Filt Rate 97 ml/min; Glucose* 87 mg/dL (60-115); Total Protein* 6.8 g/dL (6.0-8.3)
[2025-01-09 06:58] LABS: Alanine Aminotransferase* 623 U/L (4-35)
[2025-01-09 07:00] VITALS: BP 131/69; PULSE 110; PULSE 120; RESP 18; TEMP 36.6; O2SAT 100
[2025-01-09 07:00] LABS: INR 0.97 (0.91-1.10); Prothrombin Time 13.7 Seconds
[2025-01-09 08:00] VITALS: BP 131/69; PULSE 110; RESP 18; TEMP 36.6; O2SAT 100
[2025-01-09] MEDS: ASPIRIN 81 MG TAB.CHEW PO (08:44)
[2025-01-09] MEDS: POTASSIUM CHLORIDE 10 MEQ CAPSULE ER PO (08:44)
[2025-01-09] MEDS: POTASSIUM BICARB 25 MEQ EFFERVESCENT TAB 50 MEQ PO (08:44)
[2025-01-09] MEDS: FOLIC ACID 1 MG TABLET PO (08:44)
[2025-01-09] MEDS: SODIUM CHLORIDE 0.9 % (FLUSH) 10 ML SYRINGE 5 ML IVF (08:45)
--- NOTE | 2025-01-09 09:15 | PM.DS1 ---
DS: Providers Provider Date Seen: 01/09/25 Date of admission: 01/06/25 16:21 Primary care physician: Ayan Brambila MD Admitting Clinician: Kalee Thapa MD Consults: PT, OT, Nutrition Attending Physician on discharge: Zhane Shoemaker MD Date of Discharge: 01/09/25 DS: Diagnosis Discharge Diagnosis (1) Pancreatitis: Status: Acute Problem details: - first episode: + CT, elevated lipase, s/p cholecystectomy 2018 - MRCP 01/07 revealed mild bile duct dilation, possibly 2/2 recently passed stone, no current choledocholithiasis (possible recent stone) - triglycerides <100 - LFTs improving, patient hungry 01/08, advanced diet - tolerating diet and back to baseline 01/09, requesting d/c home (2) Hepatitis: Status: Acute Problem details: - last hepatic panel in [facility] was 2018 and normal - 01/07: LFTs increasing, normal ammonia and INR. Negative APAP level, hepatitis panel pending - 01/08: LFTs improving, patient clinically improved, will advance diet and continue to follow - 01/09: patient discharging, hepatitis panel pending, LFTs continuing to trend downward (3) History of cholecystectomy: Status: Chronic Problem details: - 2018 (4) Hypokalemia: Status: Acute Problem details: - replace and follow - holding HCTZ on discharge (5) H/O ETOH abuse: Status: Acute Problem details: - per patient, having 1-2 drinks/week, was previously drinking more (6) Aortic valve replaced: Status: Chronic Problem details: - TAVR 09/09/20 for severe - 23 mm Shannon 3 Ultra bioprosthesis (7) CAD (coronary artery disease): Status: Chronic Problem details: - stable, asymptomatic - per cardiology note 10/10/24 CAD with DESx2 to LAD in 2016 (NSTEMI presentation) No severe coronary lesion on 08/2020 pre-TAVR CT DS: Summary Hospital Course Hospital Course: Abby Martínez was admitted to the hospital on 01/06 for pancreatitis. Source unclear: possible CBD stone, ETOH use, idiopathic. LFTs elevated, trended downward over last 48 hours here. Potassium low and replaced during stay. Intermittent diarrhea, negative C-diff and resolved on day of discharge. Seen by therapies, no acute needs identified. Advanced diet 3/3, able to eat without difficulty and requesting d/c home on 01/09. Status at Discharge Functional status at discharge: independent ambulation Time Spent with Patient Time attestation: Total time spent providing and/or coordinating discharge services: Time spent: Greater than 30 minutes Exam Narrative: Exam Narrative: GEN: Alert and oriented, nontoxic. Sitting comfortably in bedside chair HEENT: EOMIs bilaterally, no scleral icterus CV: RRR, + systolic murmur without concerning features R: LCTA bilaterally without concerning wheezing Ab: Soft, no concerning distention, tolerates palpation Ext: trace LE edema Skin: No concerning skin lesions or rashes on exposed skin Neuro: Nonfocal Psych: Appropriate Const: Vital Signs, click to edit/add: Vital Signs - 24 hr 01/08/25 11:00 01/08/25 12:30 01/08/25 15:00 Temperature 97.9 F 97.9 F 97.8 F Pulse Rate Pulse Rate [Pulse Oximeter] 89 89 98 Respiratory Rate 20 20 20 Blood Pressure [Ri ght Arm] 136/67 136/67 157/71 H Pulse Oximetry 94 94 95 Oxygen Delivery Me thod Room Air Room Air Room Air 01/08/25 15:00 01/08/25 15:00 01/08/25 16:00 Temperature 97.8 F Pulse Rate 103 H Pulse Rate [Pulse Oximeter] 98 98 Respiratory Rate 18 18 Blood Pressure [Ri ght Arm] 157/71 H Pulse Oximetry 95 Oxygen Delivery Me thod Room Air 01/08/25 19:00 01/08/25 20:00 01/08/25 23:00 Temperature 98.4 F 98.4 F Pulse Rate Pulse Rate [Pulse Oximeter] 107 H 107 H 115 H Respiratory Rate 18 18 Blood Pressure [Ri ght Arm] 174/92 H 174/92 H Pulse Oximetry 95 95 Oxygen Delivery Me thod Room Air Room Air 01/08/25 23:42 01/08/25 23:50 01/09/25 00:57 Temperature 98.0 F 98.0 F Pulse Rate 88 Pulse Rate [Pulse Oximeter] 115 H 115 H Respiratory Rate 20 20 Blood Pressure [Ri ght Arm] 145/80 H 145/80 H Pulse Oximetry 92 92 Oxygen Delivery Me thod Room Air Room Air 01/09/25 03:54 01/09/25 03:56 Temperature 98.0 F Pulse Rate Pulse Rate [Pulse Oximeter] 94 94 Respiratory Rate 20 20 Blood Pressure [Ri ght Arm] 136/58 L 136/58 L Pulse Oximetry 92 92 Oxygen Delivery Me thod Room Air Room Air DS: Data Data Completed and Pending Labs on day of discharge: Labs from last 24 hours 01/09/25 01/08/25 01/08/25 05:43 11:38 10:00 WBC 11.44 H RBC 3.70 L Hgb 12.3 Hct 34.7 MCV 94 MCH 33 MCHC 35 RDW Coeff of Nicolasa 12.4 Plt Count 153 Neut % (Auto) 84.6 H Lymph % (Auto) 6.7 L [place] % (Auto) 7.7 Eos % (Auto) 0.4 Baso % (Auto) 0.2 Neut # (Auto) 9.70 H Lymph # (Auto) 0.80 L [place] # (Auto) 0.90 Eos # (Auto) 0.00 Baso # (Auto) 0.00 Abs Immat Gran (auto) 0.00 Imm/Tot Granulo (auto) 0.4 INR 0.97 Sodium 133 L Potassium 3.0 L Chloride 99 Carbon Dioxide 21 Anion Gap 13 BUN 6 L Creatinine 0.4 L Estimated Creat Clear 35.52 Estimated GFR 97 Glucose 87 Calcium 8.6 Magnesium 2.0 Total Bilirubin 1.5 Direct Bilirubin 0.6 H AST 152 H ALT 623 H Alkaline Phosphatase 140 Total Protein 6.8 Albumin 4.0 Triglycerides Cholesterol Stl C. diff Tox B Gene Negative Stl C. diff [id number]-[id number] PRESUMPTIVE NEGATIVE Lab Acknowledgement Test Added 01/08/25 06:21 WBC RBC Hgb Hct MCV MCH MCHC RDW Coeff of Nicolasa Plt Count Neut % (Auto) Lymph % (Auto) [place] % (Auto) Eos % (Auto) Baso % (Auto) Neut # (Auto) Lymph # (Auto) [place] # (Auto) Eos # (Auto) Baso # (Auto) Abs Immat Gran (auto) Imm/Tot Granulo (auto) INR Sodium Potassium Chloride Carbon Dioxide Anion Gap BUN Creatinine Estimated Creat Clear Estimated GFR Glucose Calcium Magnesium Total Bilirubin Direct Bilirubin AST ALT Alkaline Phosphatase Total Protein Albumin Triglycerides 96 Cholesterol 115 Stl C. diff Tox B Gene Stl C. diff [id number] Lab Acknowledgement Discharge Plan Discharge Disposition: Home, Self-Care Date of Admission: 01/06/25 16:21 Attending Provider on Discharge: Zhane Shoemaker Primary Care Provider: Ayan Brambila Condition: Improved Anticipated Discharge Date/Time: 01/09/25 13:00 Discharge Medications: Continued alendronate 70 mg tablet 70 mg PO .WEDNESDAY Rx Instructions: WEEKLY ON WEDNESDAY amlodipine 5 mg tablet 5 mg PO DAILY rosuvastatin 40 mg tablet 40 mg PO HS potassium chloride 10 mEq tablet,ER particles/crystals 10 meq PO DAILY cholecalciferol (vitamin D3) 75 mcg (3,000 unit) tablet 75 mcg PO DAILY aspirin 81 mg tablet,chewable 81 mg PO DAILY magnesium PO DAILY Rx Instructions: OTC MAGNESIUM Discontinued hydrochlorothiazide 12.5 mg capsule 12.5 mg PO DAILY Discharge Orders: Discharge Order (Routine); Ordered 01/09/25 Ordered By: Zhane Shoemaker Patient Education: Pancreatitis (DC), Hypokalemia (DC) Additional Instructions: Medication changes: STOP your Hydrochlorothiazide (also called HCTZ) - this is lowering your potassium and your blood pressure looks okay. No other changes to the rest of your medications. Low fat diet for the next 5-7 days, continue your potassium + a banana/day. We recommend no further alcohol use. Activity Level: Activity as Tolerated Discharge Diet: Other Diet Detail: low fat, then slowly advance as tolerated Follow Up Appointments: Ayan Brambila MD [Primary Care Provider] - 01/18/25 2:05 pm ([facility] for hospital follow-up, and BP check.) Forms: [employer] Info Instructions
--- NOTE | 2025-01-09 10:35 | NUTR.NU ---
RDN with diet education related to new diagnosis of pancreatitis. Patient admitted with pancreatitis and hepatitis. Medical history significant for s/p cholecystectomy 2019. Current weight 126lb 8oz; height 5ft 4in; BMI 21.7 kg/m2. Current diet is Regular. Patient is discharge today. RDN visited with patient whom reports a normal appetite. She usually eats small meals/snacks throughout the day. RDN offered diet education related to low-fat diet for pancreatitis. Patient agreed. Patient was provided diet education on a low fat diet. Discussed foods to include and foods to avoid. Education also provided following a low fat diet (about 60 grams/day) long-term. Verbal and written information as well as a sample menu provided from [facility]. Patient verbalized understanding. RDN's contact information was provided and patient was encouraged to contact RDN with questions.
--- NOTE | 2025-01-09 11:54 | PC.NURSE ---
Discharge - Pt alert, oriented, cooperative. Up with standby assistance and walker/gait belt. Pt continent of bladder during shift, tolerating RA and regular diet/fluids. Pt denied pain, SOB, n/v. Reported feeling much better today and shared with RN desire and excitement to go home. IV removed with catheter intact. D/c education given with pt verbalizing improvement. Pt d/c'd to home with daughter via wheelchair at approximately 1122.
[2025-01-09 17:17] LABS: Hep A Ab, IgM Negative (Negative); Hep B Core Ab, IgM Negative (Negative); Hep B Surface Antigen Negative (Negative); Hep C Ab by CIA Index 0.07 IV; Hep C Ab by CIA Interp Negative (Negative)
== END 2025-01-09 11:22 | disposition home or self-care (01) | DRG 439 ==
LOC: ED 15:18 → MEDSURG 16:21
PROVIDERS: Family Medicine; Admitting Provider Student in an Organized Health Care Education/Training Program; Emergency Provider Student in an Organized Health Care Education/Training Program; PCP Family Medicine; Visit Provider Student in an Organized Health Care Education/Training Program
DX: K85.90 Acute pancreatitis without necrosis or infection, unspecified (principal); B17.9 Acute viral hepatitis, unspecified; I25.2 Old myocardial infarction; R74.01 Elevation of levels of liver transaminase levels; I25.10 Atherosclerotic heart disease of native coronary artery without angina pectoris; Z95.2 Presence of prosthetic heart valve; E87.6 Hypokalemia; Z90.49 Acquired absence of other specified parts of digestive tract; N28.1 Cyst of kidney, acquired; F10.11 Alcohol abuse, in remission; Z86.79 Personal history of other diseases of the circulatory system
CPT/HCPCS: 36415; 71045; 71275; 74174; 74181; 80048; 80074; 80076; 80143; 82140; 82465; 82565; 82977; 83605; 83690; 83735; 83880; 84478; 84484; 85025; 85027; 85610; 87493; 87631; 93005; 97110; 97116; 97161; 97165; 97535; 99284; 99285; A9270; J1200; J1650; J1720; J2270; J3010; J7030; Q9967

== ENCOUNTER 2025-04-12 10:27 | Emergency (ER) | payer MEDICARE, SELFPAY ==
[2025-04-12] VITALS (21 sets, daily range): BP systolic 114–164; BP diastolic 53–78; PULSE 68–81; RESP 7–50; TEMP 35.6; O2SAT 94–100; BMI 22.0
--- NOTE | 2025-04-12 10:40 | ED.GENADULT ---
HPI - General Adult General Time Seen by Provider: 10:40 Date Seen: 04/12/25 Chief complaint: Chest Pain Stated complaint: chest and back pain Time Seen by Provider: 04/12/25 10:34 Source: patient and RN notes reviewed Mode of arrival: ambulatory Limitations: no limitations History of Present Illness HPI narrative: This 85-year-old female was at home this morning working on her tie blanket when she had sudden onset of severe lower chest and epigastric pain radiating through to her back. She states if felt like she was being cut in half. She felt like she could not breathe, did affect her breathing. This started about 9:20 a.m.. She called the person that accompanied her here and her over here. Took her about 10 minutes to get to her house likely. Patient felt diaphoretic and sweaty with this. Did not feel any nausea or vomiting with it. Pain is better now. She told nursing staff she really does not want to stay. She similarly had symptoms on January 06, was in the ER. She felt lightheaded with this again as she did in the records in January. She does not feel like there was abdominal pain with this, no nausea vomiting. When asked if she still has her gallbladder, she states everything is gone. She did have a CTA looking at dissection, there was question of mild pancreatitis. There was mild extrahepatic and intrahepatic biliary duct dilation but with previous cholecystectomy. Her lipase was 18,418 at that time. Patient did have MRI of her abdomen during that hospitalization which showed acute pancreatitis, mild bile duct dilation possibly secondary to recently passed stone. She was status post cholecystectomy. There are no filling defects in the biliary system. There were no focal abnormalities identified in the visualized portions of the liver, spleen and adrenal glands. There was diffuse pancreatic/peripancreatic edema. Related Data Home Medications ?Medication ?Instructions ?Recorded ?Confirmed alendronate 70 mg tablet 70 mg PO .Wednesday07/13/24 04/12/25 amlodipine 5 mg tablet 5 mg PO DAILY 07/13/24 04/12/25 rosuvastatin 40 mg tablet 40 mg PO HS 07/13/24 04/12/25 aspirin 81 mg chewable tablet 81 mg PO DAILY 01/06/25 04/12/25 cholecalciferol (vitamin D3) 75 75 mcg PO DAILY 01/06/25 04/12/25 mcg (3,000 unit) tablet magnesium PO DAILY 01/06/25 Allergies Allergy/AdvReac Type Severity Reaction Status Date / Time Iodinated Contrast Media Allergy Unknown Edema Verified 01/06/25 10:16 Review of Systems Status of ROS: Reports: 6 or more systems reviewed and unremarkable except as noted in History and below [facility] Medical History (Updated 04/12/25 @ 14:02 by Geno Oviedo MD) CAD (coronary artery disease) ?I25.10 - Atherosclerotic heart disease of elem coronary artery without angina pectoris (ICD-10) History of myocardial infarction ?I25.2 - Old myocardial infarction (ICD-10) H/O ETOH abuse ?F10.11 - Alcohol abuse, in remission (ICD-10) Elevated LFTs ?R79.89 - Other specified abnormal findings of blood chemistry (ICD-10) Pancreatitis ?K85.90 - Acute pancreatitis without necrosis or infection, unspecified (ICD-10) Surgical History History of cholecystectomy ?Z90.49 - Acquired absence of other specified parts of digestive tract (ICD-10) Aortic valve replaced ?Z95.2 - Presence of prosthetic heart valve (ICD-10) Social History What is your current living situation?: I presently have a place to live Problems where you live: no known problems Problems where you live details: N/A In the past 12 months, utilities in danger of being shut off: no In past 12 months, lack of transportation kept you from medical appts, meetings, work, or getting things needed for daily living: no In the past 12 mos, have been you worried that your food would run out before you had money to buy more?: never true In the past 12 mos, the food you bought just didn't last and you didn't have money to buy more?: never true Highest level of school completed/degree received: Associate degree: occupational, technical, vocational program Smoking Status: Former smoker Do you use any of these nicotine containing products: None How often do you have a drink containing alcohol: 2-3 times a week Alcohol type: beer How many standard drinks containing alcohol do you have on a typical day: 1 or 2 How often do you have six or more drinks on one occasion: Never AUDIT-C Alcohol total score: 3 Non-prescribed substance use: denies use Caffeine: No How often does anyone, including family, friends and others, physically hurt you: never How often does anyone, including family, friends and others, insult or talk down to you: never How often does anyone, including family, friends and others, threaten you with harm: never How often does anyone, including family, friends and others, scream or curse at you: never service: No Exam Const: Vital Signs, click to edit/add: Vital Signs - 24 hr 04/12/25 10:28 04/12/25 10:32 04/12/25 10:40 Temperature 96.1 F L Pulse Rate Pulse Rate [Pulse Oximeter] 74 Respiratory Rate 20 16 Blood Pressure Blood Pressure [Le ft Upper Arm] 150/71 H Pulse Oximetry 98 [facility] 04/12/25 10:41 04/12/25 10:45 04/12/25 10:52 Temperature Pulse Rate 72 71 Pulse Rate [Pulse Oximeter] Respiratory Rate 13 17 Blood Pressure 136/59 L Blood Pressure [Le ft Upper Arm] Pulse Oximetry 97 98 [facility] 04/12/25 11:00 04/12/25 11:02 04/12/25 11:15 Temperature Pulse Rate 69 70 76 Pulse Rate [Pulse Oximeter] Respiratory Rate 13 17 38 H Blood Pressure 116/53 L Blood Pressure [Le ft Upper Arm] Pulse Oximetry 98 98 [facility] 04/12/25 11:30 04/12/25 11:32 04/12/25 11:45 Temperature Pulse Rate 75 75 79 Pulse Rate [Pulse Oximeter] Respiratory Rate 14 7 L 50 H Blood Pressure 114/69 Blood Pressure [Le ft Upper Arm] Pulse Oximetry 98 98 97 Oxygen Delivery Me thod 04/12/25 12:00 04/12/25 12:01 04/12/25 12:09 Temperature Pulse Rate 74 81 Pulse Rate [Pulse Oximeter] Respiratory Rate 16 21 14 Blood Pressure 142/78 H Blood Pressure [Le ft Upper Arm] Pulse Oximetry 95 [facility] 04/12/25 12:10 04/12/25 12:15 04/12/25 12:30 Temperature Pulse Rate 76 76 76 Pulse Rate [Pulse Oximeter] Respiratory Rate 13 13 Blood Pressure 164/74 H Blood Pressure [Le ft Upper Arm] Pulse Oximetry 98 96 94 Oxygen Delivery Me thod 04/12/25 12:32 04/12/25 12:45 Temperature Pulse Rate 68 74 Pulse Rate [Pulse Oximeter] Respiratory Rate 18 Blood Pressure 133/65 Blood Pressure [Le ft Upper Arm] Pulse Oximetry 96 98 Oxygen Delivery Me thod This 85-year-old female is alert, interactive, no apparent distress. Her speech is normal, sclera clear, conjugate gaze. Skin is warm and dry, not diaphoretic, no rash. Lungs are clear, good air entry, no wheezing or crackles, no tachypnea, no accessory muscle use. CV regular rate and rhythm, systolic murmur heard, normal S1-S2. Abdomen is soft, nontender, nondistended, no organomegaly, rebound or guarding. She has no palpable chest tenderness, no epigastric pain. No lower extremity edema. Moving arms and legs, no focal neurologic deficits. Documenting provider has reviewed patient's vital signs: yes Course Course ED Course: This 85-year-old female certainly could have ischemic disease, could be recurrent abdominal pathology with recurrent pancreatitis. She is improved at this time, would make it less likely to have a short episode of pancreatitis or pancreatic inflammation causing this. Will start with labs, portable chest x-ray, EKG, pulse oximetry and cardiac monitoring. She is returned to baseline and is improved. Unclear if this episode could be something cardiopulmonary, GI. Reevaluation(s) Time of Reevaluation #1: 13:58 Reevaluation #1: Patient has remained asymptomatic here. She was resting when I came in. We did discuss that her liver enzymes remain mildly elevated. Her MRI of her abdomen from January was not showing any liver abnormality that was commented on. She is on a cholesterol medicine. She will maybe have 1 beer a week per report. This is something that needs to be followed up with her primary care provider and rechecked, discuss her medication profile like the cholesterol medicine. I personally would recommend trial off the cholesterol medicine but will leave this to her primary care provider to review further. There is no significant elevation that warrants immediate removal of medications. There is no evidence of pancreatitis at this time. We did discuss that we do not have a definitive etiology for her symptoms earlier, if they return I would recommend re-evaluation. Her troponins remain normal and her symptoms abated without any intervention. Vital Signs Vital signs: Initial Vital Signs Respiratory Effort Normal, Spontaneous, Non-Labored 04/12/25 10:28 Respiratory Depth Normal 04/12/25 10:28 Pulse Oximetry 98 04/12/25 10:28 Vital Signs Pulse Oximetry 98 04/12/25 10:28 Temperature 96.1 F L 04/12/25 10:32 Pulse Rate 74 04/12/25 12:45 Respiratory Rate 18 04/12/25 12:45 Blood Pressure 133/65 04/12/25 12:32 Pulse Oximetry 98 04/12/25 12:45 Oxygen Delivery Method Room Air 04/12/25 10:32 Medical Decision Making Lab Data Lab results reviewed: Yes I reviewed the patient's lab results Labs: Lab Results 04/12/25 04/12/25 Range/Units 11:25 12:45 WBC 8.73 (4.50-11.00) K/uL RBC 4.21 (4.00-5.20) m/uL Hgb 13.5 (12.0-16.0) gm/dL Hct 40.0 (33.0-51.0) % MCV 95 (80-100) fL MCH 32 (26-34) pg MCHC 34 (32-36) gm/dL RDW Coeff of Nicolasa 12.5 (11.5-15.5) % Plt Count 230 (140-440) K/uL Neut % (Auto) 77.4 H (42.0-72.0) % Lymph % (Auto) 14.8 L (20-44) % Andrews % (Auto) 5.5 (0.0-11.0) % Eos % (Auto) 1.5 (0.0-7.0) % Baso % (Auto) 0.8 (0.0-3.0) % Neut # (Auto) 6.80 (1.7-7.0) K/uL Lymph # (Auto) 1.30 (0.90-2.90) K/uL Andrews # (Auto) 0.50 (0.00-0.90) K/UL Eos # (Auto) 0.13 (0.00-0.50) K/uL Baso # (Auto) 0.07 (0.00-0.30) K/uL Abs Immat Gran (auto) 0.00 (0.00-0.30) K/uL Imm/Tot Granulo (auto) 0.0 % INR 0.93 (0.91-1.10) APTT 24 (23-33) Seconds D-Dimer Quant (PE/DVT) 0.64 H (0.00-0.50) ug/ml VBG pH 7.389 (7.32-7.43) VBG pCO2 44 (40-50) mmHG VBG pO2 < 30.1 (25-47) mmHG VBG HCO3 27 (21-28) mmol/L Sodium 136 (135-149) mmol/L Potassium 4.9 (3.6-5.1) mmol/L Chloride 102 (96-114) mmol/L Carbon Dioxide 25 (20-32) mmol/L Anion Gap 9 (7-15) mEq/L BUN 12 (7-30) mg/dL Creatinine 0.6 (0.5-1.5) mg/dL Estimated Creat Clear 34.87 Estimated GFR 87 ml/min Glucose 107 (60-115) mg/dL Lactate 1.1 (0.5-1.9) mmol/L Calcium 9.9 (8.4-10.6) mg/dL Total Bilirubin 1.0 (0.1-1.5) mg/dL AST 207 H (12-35) U/L ALT 99 H (4-35) U/L Alkaline Phosphatase 84 (40-150) U/L Troponin I 0.02 < 0.01 (0.01-0.04) ng/mL C-Reactive Protein < 0.5 L (0.5-1.0) mg/dL NT-Pro-B Natriuret Pep 435 H (See Note) pg/mL Total Protein 7.9 (6.0-8.3) g/dL Albumin 4.8 (3.3-5.0) g/dL Lipase 139 (23-300) U/L Imaging Data Chest x-ray: Attestation: I have reviewed the pertinent imaging results. Radiologist's impression: Patient: CIERRA LENTZ Facility:?[facility] Patient ID:?[id number] Site Patient ID:?[id number]. Site :?[id number] Study:?XRay-Chest Portable one view-04/12/2025 11:26:39 AM Ordering Physician:Berta Lora Final Report: Indication: Chest pain Technique: Chest 1 view Comparison: Chest x-ray 01/06/2025 Findings/Impression: Cardiovascular and mediastinum: Heart size and vasculature are normal in caliber and appearance. Lungs and pleural space: No pleural effusion or pneumothorax. Stable bilateral granulomata. Calcified right hilar lymph nodes. Bones and soft tissues: Old left clavicular fracture. Dictated by Logan Solares MD @ 04/12/2025 12:06:12 PM (Electronic Signature) ECG Data Attestation: I personally reviewed and interpreted this ECG as follows: (Normal sinus rhythm, 71 beats per minute. Right bundle branch block.) Prior ECG tracings: available for review (Appears similar, bifascicular block present on prior.) Discharge Plan Discharge Clinical Impression: Epigastric pain Chest pain Qualifiers: Chest pain type: unspecified Qualified Code(s): R07.9 - Chest pain, unspecified Patient Disposition: Home, Self-Care Condition: Stable Instructions: Chest Pain (ED), Epigastric Pain (ED) Additional Instructions: Need to schedule a follow-up appointment with your primary care provider, hopefully you can have this done within the next 1-2 weeks. You will need your liver enzymes recheck, review medications to see if any of these should be removed in case of ongoing liver enzymes. You did have an MRI of your abdomen in January here which did not show any specific liver abnormality. Return if worsening or recurrent symptoms, or if you develop new concerns. AST here today was 207 and ALT was 99. The rest of the liver panel was normal, your lipase was normal. Activity Level: Activity as Tolerated Prescriptions: No Action alendronate 70 mg tablet 70 mg PO .WEDNESDAY Rx Instructions: WEEKLY ON WEDNESDAY amlodipine 5 mg tablet 5 mg PO DAILY rosuvastatin 40 mg tablet 40 mg PO HS cholecalciferol (vitamin D3) 75 mcg (3,000 unit) tablet 75 mcg PO DAILY aspirin 81 mg tablet,chewable 81 mg PO DAILY magnesium PO DAILY Rx Instructions: OTC MAGNESIUM Follow Up/Referrals: Ayan Brambila MD [Primary Care Provider, Family Practice] Stand Alone Forms: [employer] Info Instructions
--- NOTE | 2025-04-12 10:52 | CRLHL7_ITS ---
For Patients: As a result of the Century Cures Act, medical imaging exams and procedure reports are released immediately into your electronic medical record. You may view this report before your referring provider. If you have questions, please contact your health care provider. Indication: Chest pain Technique: Chest 1 view Comparison: Chest x-ray 01/06/2025 Findings/Impression: Cardiovascular and mediastinum: Heart size and vasculature are normal in caliber and appearance. Lungs and pleural space: No pleural effusion or pneumothorax. Stable bilateral granulomata. Calcified right hilar lymph nodes. Bones and soft tissues: Old left clavicular fracture. Dictated by Logan Solares MD @ 04/12/2025 12:06:12 PM (Electronically Signed)
[2025-04-12 11:31] LABS: HCO3 VBG 27 mmol/L (21-28); Lactate* 1.1 mmol/L (0.5-1.9); PCO2 VBG 44 mmHG (40-50); PO2 VBG < 30.1 mmHG (25-47); pH VBG 7.389 (7.32-7.43)
[2025-04-12 11:35] LABS: Basophils Absolute Auto 0.07 K/uL (0.00-0.30); Basophils Percent Auto 0.8 % (0.0-3.0); Eosinophils Absolute Auto 0.13 K/uL (0.00-0.50); Eosinophils Percent Auto 1.5 % (0.0-7.0); Hemoglobin* 13.5 gm/dL (12.0-16.0); Lymphocytes Percent Auto 14.8 % (20-44); Mean Corpuscular HGB Conc 34 gm/dL (32-36); Mean Corpuscular Hemoglobin 32 pg (26-34); Mean Corpuscular Volume 95 fL (80-100); Monocytes Percent Auto 5.5 % (0.0-11.0); Neutrophils Percent Auto 77.4 % (42.0-72.0); Platelet Count* 230 K/uL (140-440); RDW Coefficient of Variation % 12.5 % (11.5-15.5); Red Blood Count 4.21 m/uL (4.00-5.20); White Blood Count* 8.73 K/uL (4.50-11.00)
[2025-04-12 11:36] LABS: Slide Review Reflex No
[2025-04-12 11:48] LABS: Albumin* 4.8 g/dL (3.3-5.0); Chloride* 102 mmol/L (96-114)
[2025-04-12 11:49] LABS: Potassium* 4.9 mmol/L (3.6-5.1); Sodium* 136 mmol/L (135-149)
[2025-04-12 11:51] LABS: Alanine Aminotransferase* 99 U/L (4-35); Aspartate Amino Transferase* 207 U/L (12-35); Blood Urea Nitrogen* 12 mg/dL (7-30); Creatinine* 0.6 mg/dL (0.5-1.5); Est. Creatinine Clearance* 34.87; Estimated Glomerular Filt Rate 87 ml/min
[2025-04-12 11:52] LABS: Alkaline Phosphatase* 84 U/L (40-150); Anion Gap 9 mEq/L (7-15); Calcium* 9.9 mg/dL (8.4-10.6); Carbon Dioxide* 25 mmol/L (20-32); Glucose* 107 mg/dL (60-115); Lipase* 139 U/L (23-300); Total Protein* 7.9 g/dL (6.0-8.3)
[2025-04-12 11:53] LABS: INR 0.93 (0.91-1.10); Prothrombin Time 13.3 Seconds
[2025-04-12 11:54] LABS: Partial Thromboplastin Time* 24 Seconds (23-33)
[2025-04-12 11:55] LABS: C Reactive Protein* < 0.5 mg/dL (0.5-1.0)
[2025-04-12 12:03] LABS: D Dimer Quantitative* 0.64 ug/ml (0.00-0.50)
[2025-04-12 12:04] LABS: NT Pro B Type NatriureticPept* 435 pg/mL (See Note); Troponin I* 0.02 ng/mL (0.01-0.04)
[2025-04-12 13:24] LABS: Troponin I* < 0.01 ng/mL (0.01-0.04)
== END 2025-04-12 14:17 | disposition home or self-care (01) ==
PROVIDERS: Emergency Provider Family Medicine; PCP Family Medicine
DX: R07.9 Chest pain, unspecified (principal); R10.13 Epigastric pain; R06.02 Shortness of breath
CPT/HCPCS: 36415; 71045; 80053; 82803; 83605; 83690; 83880; 84484; 85025; 85379; 85610; 85730; 86140; 93005; 94761; 99284; 99285

== ENCOUNTER 2025-04-19 12:27 | Outpatient (CLI) | payer MEDICARE, SELFPAY | END 2025-04-19 12:28 | disposition home or self-care (01) | LOC: AMB 04-20 10:50 | PROVIDERS: PCP Family Medicine; Visit Provider Family Medicine | DX: R10.9 Unspecified abdominal pain (principal) | CPT/HCPCS: A0425; A0427 ==

== ENCOUNTER 2025-04-19 13:08 | Emergency (ER) | payer MEDICARE, SELFPAY ==
[2025-04-19] VITALS (21 sets, daily range): BP systolic 107–139; BP diastolic 47–72; PULSE 75–86; RESP 16–18; TEMP 36.4–37; O2SAT 84–97
--- OUTSIDE RECORDS SUMMARY | 2025-04-19 13:11 | XMS_ITS | Clinical Summary ---
Author Organization [facility] Address [address] [place] [id number] Care Team Providers Care Finisher Brush Name Role Phone Ayan Brambila MD Primary Care Provider Allergies Active Allergy Reactions Criticality Noted Date Comments Iodinated Contrast Media Edema 01/15/2007 Medications aspirin chewable 81 mg chewable tabletIndications: Non-ST elevated myocardial infarction (HC) Take 1 tablet by mouth or nasogastric tube once daily. 0 06/18/20 16 Active calcium carbonate-vitamin D3, 500 mg-400 units, (OSCAL 500 + D) tabletIndications: Osteoporosis, unspecified osteoporosis type, unspecified pathological fracture presence Take 1 tablet by mouth once daily. 180 tablet 3 08/15/20 20 Active triamcinolone (ARISTOCORT; KENALOG) 0.1 % creamIndications:A cute eczema Apply topically to affected area(s) 3 times daily. Not to exceed 14 days in one location per episode. 45 g 09/10/20 21 Active ammonium lactate 12% (LACHYDRIN) 12 % cream apply to dry areas BY TOPICLA ROUTE on body 1-2 TIMES daily. 08/26/20 21 Active cholecalciferol (VITAMIN D3) 1,000 unit capsuleIndications :Vitamin D deficiency Take 1 Capsule (1,000 units) by mouth once daily. 0 09/29/20 22 Active amoxicillin 500 mg tabletIndications: Need for SBE (subacute bacterial endocarditis) prophylaxis 4 tablets orally 1 hour before procedure. 4 Tablet 3 06/20/20 24 Active amLODIPine (NORVASC) 5 mg tabletIndications: Hypertension, unspecified type Take 1 Tablet (5 mg) by mouth once daily. 90 Tablet 3 08/17/20 Active rosuvastatin (CRESTOR) 40 mg tabletIndications: Hyperlipidemia, unspecified hyperlipidemia type Take 1 Tablet (40 mg) by mouth at bedtime. 90 Tablet 3 08/17/20 24 Active alendronate (FOSAMAX) 70 mg tabletIndications: Osteoporosis, unspecified osteoporosis type, unspecified pathological fracture presence Take 1 Tablet (70 mg) by mouth once a week in the morning. Take on empty stomach with full glass of water. Do not lie down for 1 hr. 12 Tablet 3 08/17/20 Active Hospital, Clinic, or Other Facility Administered Medication Ordered Dose Route Frequency Start Date End Date Status triamcinolone acetonide (KENALOG) injection 40 mgIndications:Rotator cuff tear arthropathy of right shoulder 40 mg IArtic ONE TIME 04/13/2025 04/13/2025 Ended betamethasone acet,sod phos 6 mg injection (CELESTONE SOLUSPAN)Indications:Arthr itis of right acromioclavicular joint 6 mg IArtic ONE TIME 04/13/2025 04/13/2025 E nded Active Problems Problem Noted Date Diagnosed Date Arthritis of right acromioclavicular joint 09/10 Rotator cuff tear arthropathy of right shoulder 09/10/2023 Stage 3a chronic kidney disease 08/05/2021 S/P TAVR 09/09/2020 08/07/2019 Osteoporosis 02/23/2019 PAD (peripheral artery disease) 12/15/2017 Chronic obstructive pulmonary disease 12/01/2017 Mixed hyperlipidemia 08/25/2016 Non-ST elevated myocardial infarction 06/15/2016 Idiopathic gout 03/12/2016 Vitamin D deficiency 09/03/2010 Essential hypertension 04/08/2009 Overview (01/21/2010): Updated by system to replace inactive record Irritable bowel syndrome 06/22/2007 Polycythemia, secondary 03/16/2007 Esophageal reflux 01/15/2007 Overview (01/15/2007): chronic epigastric pain/gastritis Osteoarthrosis, unspecified whether generalized or localized, shoulder region Resolved Problems Problem Noted Date Diagnosed Date Resolved Date Gout 03/03/2015 03/12/2016 Tobacco use disorder 09/03/2010 018 Needs influenza immunization 07/23/2009 08/04/2018 Prepatellar bursitis 07/16/2009 015 Major depressive disorder, r ecurrent episode, mild 11/22/2007 08/04/2018 Major depressive disorder, r ecurrent episode, mild 09/05/2007 11/11/2007 Sciatica 06/22/2007 08/13/2022 ELBOW PAIN 03/16/2007 08/04/2018 Major depressive disorder, r ecurrent episode, moderate 08/04/2018 Benign essential HTN 022 Encounters Date Type Department Care Team Description 04/13/2025 1:30 PM CDT Office Visit [facility] [address] [facility] [place] [address] Honorio Matthews MD Follow Up (right shoulder) 04/13/2025 Travel 04/12/2025 Orders Only [facility] Scanner 1 scan: (1-Ord) [facility], XR CHEST 1V PORTABLE, 04/12/2025 01/18/2025 2:05 PM CDT Office Visit [facility] [address] [place] [address] Ayan Brambila MD Hospital F/U 01/18/2025 Telephone [facility] [address] [place] [address] Ayan Brambila MD Results (From 01/18/25) 01/18/2025 Travel from Last 3 Months Immunizations Immunization Administration Dates Next Due Amb Influenza, Inact (High-d ose) (Flu Clinic Only) 09/27/2015,08/24/2014 Amb Influenza, Inactivated A IIV4 (Age 65+ Years) Preserv Free 07/29/2020 COVID-19 VACCINE COMIRNATY (PFIZER-BIONTECH 30MCG/0.3ML) 12YO+ PFS 08/06/2023 COVID-19 VACCINE SPIKEVAX (M ODERNA 50MCG/0.5ML) 12YO+ PFS 08/17/2024,02/18/2024 COVID-19 vaccine (Pfizer-Bio NTech 30mcg/0.3mL) 12YO+ BIVALENT PF, MDV 08/13/2022 COVID-19 vaccine (Pfizer-Bio NTech 30mcg/0.3mL) 12YO+ MO-SUCROSE PF, MDV 02/18/2022 COVID-19 vaccine (Pfizer-Bio NTech 30mcg/0.3mL) PF, MDV 08/05/2021,01/21/2021,12/31/2020 Influenza A (H1N1), Inactivated 10/29/2009 Influenza A (H1N1), Inactiva skylar (Age >=3 Years) 10/29/2009 Influenza, High-dose Inactivated 08/25/2016,09/09,08/24/2014 Influenza, IIV3 (Age 6-35 mos) 07/21/2011,2009 Influenza, IIV3 (Age >=3 years) 09/18/20 13,10/11/2012,07/21/2011,08/05,07/23/2009,09/12/2008,09/23/2007 ,10/28/2006,08/25/2005,09/15/2004,10/09 Influenza, Inactivated AIIV4 (Age 65+ Years) Preserv Free 08/16/2023,08/13/2022,08/05/2021 Influenza, Inactivated IIV3 (Age 65+ Years) Preserv Free 08/17/2024,07/20/2019,08/04/2018,07/22 Pneumococcal Conj 20-valent (Prevnar 20) 02/18/2024 Pneumococcal Poly,23-Valent (Pneumovax) 04/03/2016,11/05/2003 Pneumococcal conj 13-Valent (Prevnar 13) 03/12/2015 RSV, Recombinant ADJ Reconst ituted (Arexvy 120MCG/0.5mL) 02/11/2024 Td (Age >=7 Years) 10/28/2006 Td, Preservative Free (age >= 7 Years) 6 Tdap 08/21/2021,07/21/2011 Zoster (Shingrix-RZV, recombinant) 07/03/2022, Family History Medical History Relation Name Comments Diabetes Brother Heart Disease Brother Cancer Father stomach Cancer-breast Mother Anesthesia Problem No Family History Relation Name Status Comments Brother Father Mother Social History Tobacco Use Types Packs/Day Years Used Date Smoking Tobacco: Former Cigarettes 0.2 51 0 06/08/1965 - 06/08/2016 Smokeless Tobacco: Never Tobacco Cessation:Counseling Given: Yes Alcohol Use Standard Drinks/Week Comments No 0 (1 standard drink = 0.6 oz pur e alcohol) rare PHQ-2 Answer Date Recorded PHQ-2 TOTAL SCORE 2 08/17/2024 Social Connections Answer Date Recorded Do you often feel lonely or isolated from those around you? 0 02/18/2024 Financial Resource Strain Answer Date R ecorded Difficulty of Paying Living Expenses 3 02/18/2024 Difficulty of Paying Living Expenses Not on file 02/18/2024 Food Insecurity Answer Date Recorded Do you worry your food will run out before you are able to buy more? 1 02/18/2024 Transportation Needs Answer Date Record ed Does lack of transportation keep you from medica l appointments? 1 02/18/2024 Does lack of transportation keep you from work, meetings or getting things that you need? 1 02/18/2024 Housing Stability Answer Date Recorded What is your housing situation today? 1 02/18/2024 Utilities Answer Date Recorded Do you have trouble paying f or utilities (for example, heat, electricity, water, phone)? 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 [employer] Gender Identity Not on file Sexual Orientation Not on file Obstetrics History Last Filed Vital Signs Vital Sign Reading Time Taken Comments Blood Pressure 122/62 01/18/2025 2:14 PM CDT Pulse 78 01/18/2025 2:03 PM CDT Temperature 36.8 C (98.3 F) 09/10/2020 1:00 PM DIRECTOR INSTRUCTIONAL [employer]ERIAL Respiratory Rate 16 10/04/2020 3:40 PM DIRECTOR INSTRUCTIONAL MATERIAL Oxygen Saturation 99% 01/18/2025 2:03 PM CDT Inhaled Oxygen Concentration - - Weight 57.1 kg (125 lb 12.8 oz) 01/18/2025 2:03 PM CDT Height 163.3 cm (5' 4.29) 08/17/2024 1 0:32 AM CDT Body Mass Index 21.4 08/17/2024 10:32 AM CDT Plan of Treatment Health Maintenance Due Date Last Done Comments BMI (ht and wt on same day) for age 18+ 08/17/2025 08/17/2024, 08/16/2023, 08/13/2022, Additional history exists Depression screening for age 12+ 08/17/2025 08/17/2024, 08/16/2023, 08/13/2022, Additional history exists Medicare Wellness for age 65+ 08/18/2025 08/17/2024, 08/16/2023, 08/13/2022, Additional history exists Tetanus booster 08/21/2031 08/21/2021, 07/09, 10/28/2006, Additional history exists Tdap Completed 08/21/2021, 07/21/2011 Zoster (shingles) series for age 50+ Completed 07/03/2022, 05/04/2022 RSV vaccine for adults or Completed 02/11/2024 Pneumococcal series for age 50+ Completed 02/18/2024, 04/03/2016, 03/12/2015, Additional history exists DEXA/DXA scan for age 65+ Completed 2023, 02/20/2019, 03/13/2016, Additional history exists Influenza Vaccine Completed 08/17/2024, , 08/13/2022, Additional history exists COVID-19 vaccine series Completed 03/03/20 25, 08/17/2024, 02/18/2024, Additional history exists Hepatitis B series for 19+ Aged Out N o longer eligible based on patient's age to complete this topic Procedures Procedure Name Priority Date/Time Associated Diagnosis Comments SCAN-RADIOLOGY REPORT 04/12/2025 12:00 AM CDT BASIC METABOLIC PANEL Routine 01/18/2025 2:34 PM CDT Benign essential HTN HEPATIC FUNCTION PANEL Routine 01/18/2025 2:34 PM CDT Acute pancreatitis, unspecified complication status, unspecified pancreatitis type (HC) XR DXA BONE DENSITY 2 SITES AXIAL AND 1 SITE PERIPHERAL Routine 02/24/2024 1:16 PM CDT Personal history of ongoing treatment with alendronate (Fosamax) from Last 3 Months or Most Recently Relevant to Health Maintenance Results * SCAN-RADIOLOGY REPORT (04/12/2025 12:00 AM CDT) Anatomical Region Laterality Modality Other us Scanner OTHER Final Result * (ABNORMAL) HEPATIC FUNCTION PANEL (01/18/2025 2:34 PM CDT) PROTEIN, TOTAL 7.1 6.1 - 8.1 g/dL [facility] ALBUMIN 4.4 3.6 - 5.1 g/dL [facility] GLOBULIN 2.7 1.9 - 3.7 g/dL (calc) [facility] ALBUMIN/GLOBULIN RATIO 1.6 1.0 - 2.5 (calc) [facility] BILIRUBIN, TOTAL 0.7 0.2 - 1.2 mg/dL [facility] BILIRUBIN, DIRECT 0.2 < OR = 0.2 mg/dL [facility] BILIRUBIN, INDIRECT 0.5 0.2 - 1.2 mg/dL (calc) [facility] ALKALINE PHOSPHATASE 89 37 - 153 U/L [facility] AST 26 10 - 35 U/L [facility] ALT 42(H) 6 - 29 U/L [facility] Blood BLOOD SPECIMEN / Unknown 01/18/2025 2:34 PM CDT 01/18/2025 2:35 PM CDT us Ayan Brambila MD CHEMISTRY Final Result Spectral Image [facility] [address] [place] [address], [facility] [address] [place] [address] * BASIC METABOLIC PANEL (01/18/2025 2:34 PM CDT) GLUCOSE 91 65 - 99 mg/dL [facility] Comment: Fasting reference interval UREA NITROGEN (BUN) 11 7 - 25 mg/dL [facility] CREATININE 0.63 0.60 - 0.95 mg/dL [facility] Saule EGFR 87 > OR = 60 mL/min/1. 73m2 [facility] BUN/CREATININE RATIO SEE NOTE: 6 - 22 (calc) [facility] Comment: Not Reported: BUN and Creatinine are within reference range. SODIUM 139 135 - 146 mmol/L [facility] Saule POTASSIUM 4.4 3.5 - 5.3 mmol/L [facility] CHLORIDE 102 98 - 110 mmol/L [facility] Saule CARBON DIOXIDE 24 20 - 32 mmol/L [facility] Saule ELECTROLYTE BALANCE 13 7 - 17 mmol/L (calc) [facility] CALCIUM 10.0 8.6 - 10.4 mg/dL [facility] reina Juárez Blood BLOOD SPECIMEN / Unknown 01/18/2025 2:34 PM CDT 01/18/2025 2:35 PM CDT us Ayan Brambila MD CHEMISTRY Final Result Spectral Image [facility] [address] [place] [address], [facility] [address] [place] [phone] * (ABNORMAL) XR DXA BONE DENSITY 2 SITES AXIAL AND 1 SITE PERIPHERAL (02/24/2024 1:16 PM CDT) Anatomical Region Laterality Modality LUMBAR SPINE Other Impressions 02/29/2024 12:00 PM CDT Osteopenia. RECOMMENDATIONS: The National Osteoporosis Foundation recommends pharmacologic treatment for patients with T-scores of -2.5 or less, patients with prior history of fragility fractures, or patients with 10-year probability of greater than 3% at hips or greater than 20% of suffering major osteoporotic fractures. Recommend continued optimization of calcium and vitamin D intake through dietary means and/or supplementation and regular exercise. Consider pharmacologic therapy for osteopenia with increased fracture risk. Follow-up bone density reading in 2 years if therapy initiated to assess therapeutic efficacy. Tracie Montiel PA-C [facility] 02/29/2024 Narrative 02/29/2024 12:00 PM CDT For Patients: Results are automatically released to [facility] account once available, in compliance with federal regulations. This means that you may see your results before your provider has had a chance to review them. Please allow 2-3 business days for your provider to comment on the results. XR DXA Bone Mineral Density (BMD) EXAM LOCATION: [facility] [address] [facility] [address] PATIENT NAME: Abby David DATE OF : 1940 EXAM DATE: 02/24/2024 REQUESTING PROVIDER: Ayan Brambila MD GENDER AT : female HEIGHT: 5' 4 (08/16/2023) WEIGHT: 130 lb (02/18/2024) MENOPAUSAL STATUS: Postmenopausal RACE/ETHNICITY: White RISK FACTORS: History of Fragility Fracture (at a major site), Smoking (prior), and White Race CURRENT MEDICATION FOR BONE LOSS: NONE INDICATION: Post-Menopause COMPARISON DATE(S): 2018 DXA scans are compared to prior studies for a patient only when the two (or more) studies were performed on the same scanner. It is not possible to compare data generated on one scanner to data from another because there are not standards in DXA equipment. This applies even if the two scanners are made by the same ward maid. PROCEDURE: Dual-energy x-ray absorptiometry performed with routine technique. Reporting is completed in the form of a T-score. The T-score represents the standard deviation from peak bone mass based on young healthy adult. A Z-score is used for diagnosis in premenopausal women, and for men under the age of 50. FINDINGS: RESULT LUMBAR SPINE L1 - L4 BMD: 1.165 g/cm2 T-Score: - 0.1 Z-Score: + 2.0 Change from prior in 2015: Increase 12.7%. RESULTS FEMUR Left femoral neck BMD: 0.778 g/cm2 T-Score: - 1.9 Z-Score: + 0.6 Change from prior in 2019: Increase 6.4%. Right femoral neck BMD: 0.745 g/cm2 T-Score: - 2.1 Z-Score: + 0.4 Change from prior in 2019: Increase 2.1%. Left hip BMD: 0.793 g/cm2 T-Score: - 1.7 Z-Score: + 0.7 Change from prior in 2019: Increase 8.0%. Right hip BMD: 0.770 g/cm2 T-Score: - 1.9 Z-Score: + 0.5 Change from prior in 2019: Increase 1.0%. RESULT FOREARM Left Forearm distal radius BMD: 0.565 g/cm2 T-Score: - 1.8 Z-Score: + 1.4 Change from prior: None WHO criteria: Normal: T-score at or above -1 SD Osteopenia: T-score between -1.1 and -2.4 SD Osteoporosis: T-score at or below -2.5 SD FRAX RISK CALCULATION (USED FOR OSTEOPENIA ONLY): 10-year probability of major osteoporotic fracture: 21.8%. 10-year probability of hip fracture: 6.6%. Ayan Brambila MD DEXA Final Result from Last 3 Months or Most Recently Relevant to Health [place] [address] MEDICARE PART A HB ONLY [employer] MED[employer]ARE ADVANTAGE Advance Directives * Full Code (Latest Code Status on File) Date Activated Date Inactivated Comments 09/09/2020 7:07 AM 09/10/2020 5:59 PM Question Answer Comments Code Status Discussion: Discussed * Full Code Date Activated Date Inactivated Comments 07/06/2019 12:20 PM 07/06/2019 8:02 PM * Full Code Date Activated Date Inactivated Comments 07/06/2019 12:20 PM 07/06/2019 12:20 PM * DNR Date Activated Date Inactivated Comments 06/15/2016 8:08 PM 06/18/2016 7:51 PM * Full Code Date Activated Date Inactivated Comments 06/15/2016 7:27 PM 06/15/2016 8:08 PM Care Teams Finisher Brush Relationship Specialty Start Date End Date Ayan Brambila MD [address] [place] [address] PCP - General 11/12/09
--- NOTE | 2025-04-19 13:34 | CRLHL7_ITS ---
For Patients: As a result of the Century Cures Act, medical imaging exams and procedure reports are released immediately into your electronic medical record. You may view this report before your referring provider. If you have questions, please contact your health care provider. INDICATION: Abdominal pain. TECHNIQUE: CT abdomen and pelvis acquired with 63 cc Isovue 370 IV contrast. COMPARISON: MRI abdomen dated 01/06/2025. CT abdomen pelvis dated 07/13/2024. FINDINGS: Lower chest: Redemonstrated patchy bibasilar subsegmental atelectasis/scarring. Calcified granuloma in the left lower lobe with mild scattered cystic change. Liver: Unremarkable. Gallbladder and bile ducts: Cholecystectomy. Redemonstrated diffuse dilatation of the biliary system, with the common bile duct measuring up to 1.2 cm (02/10), similar in size dating back to at least 04/08/2019 when it measured 1.1 cm (remeasured, ). As before, there is smooth tapering toward the ampulla of Vater, most suggestive of reservoir effect. No visualized choledocholithiasis. Redemonstrated moderately-sized periampullary duodenal diverticulum. Pancreas: Similar volume of hypodense fluid surrounding the entire pancreas and extending along the nearby retroperitoneal planes. No evident loculation or rim enhancement. No hypoenhancing pancreatic parenchyma to suggest necrosis. Mildly dilated main pancreatic duct which measures up to 0.5 cm in the pancreatic head (), previously approximately 0.3 cm on the prior MRI (remeasured 05/27). Spleen: Unremarkable. Normal in size. No masses. Adrenal glands: Unremarkable. No nodules. Kidneys: Subcentimeter cortical hypodensities, too small to characterize. Mild right ureteral urothelial enhancement extending to the renal pelvis, likely secondary to reactive inflammation as ureter passes through the peripancreatic fluid. No hydroureteronephrosis or evident urolithiasis. GI tract: As noted above, there is a redemonstrated periampullary duodenal diverticulum. There is an additional small diverticulum along the 4th duodenal segment. Bowel is normal in caliber without evidence of obstruction. Colonic diverticulosis. Vasculature: Abdominal aorta is normal in caliber. Mesenteric arteries are patent. Lymph nodes: Numerous prominent peripancreatic lymph nodes, which may be reactive. Peritoneum/Abdominal Wall: Unremarkable. No sign of mass or infiltration. No free air or significant free fluid. Pelvis: Unremarkable. Bones: Diffuse osseous demineralization. No acute or suspicious osseous abnormalities. IMPRESSION: Compared to 01/06/2025, similar moderate volume peripancreatic fluid collection, which may reflect persistent or recurrent interstitial edematous pancreatitis. No evident mature abscess formation. The etiology of the pancreatitis is uncertain, but it may be related to the moderately sized periampullary duodenal diverticulum. Please note that all CT scans at this facility use dose modulation, iterative reconstruction, and/or weight-based dosing when appropriate to reduce radiation dose to as low as reasonably achievable. Dictated by Jd Mckinney MD @ 04/19/2025 5:03:30 PM (Electronically Signed)
--- NOTE | 2025-04-19 13:51 | ED.ABDPAIN ---
HPI - Abdominal Pain General Date Seen: 04/19/25 Chief Complaint: Abdominal Pain Stated Complaint: abdomen pain Time Seen by Provider: 04/19/25 13:13 Source: patient, family and EMS Mode of arrival: EMS Limitations: no limitations History of Present Illness HPI narrative: Patient is an 85-year-old female presenting to the emergency department for epigastric pain radiating to her back. She is brought in by EMS due to the worsening pain and her daughter not feel comfortable giving her down the steps and to her car by herself. Symptoms have been going on for the past week and she was seen in the emergency department at that time. Workup was negative. Since then patient has had intermittent symptoms but none to bad. Worst was this past Wednesday. Today symptoms of got acutely worse. She was supposed to go to a primary care follow-up today for was unable due to the pain. States pain is much worse than when she was seen in the ED 1 week ago. Patient was seen here for pancreatitis 3 months ago but she is unable save this pain is similar. She does not ever remember where the pain was at that time. Has not had any fevers, chills, chest pain, shortness of breath, headache, vision changes. Has had some diarrhea this morning she states was brown and a normal bowel movement yesterday. Denies any dysuria. No history of AFib. No other concerns noted at this time. Patient is having some difficulty answering questions due to the distraction of the pain and family states that is normal for her. They states she is otherwise acting at her mental baseline. Of note patient drinks 1-2 beers a week when her neighbor comes to visit. Denies any further alcohol use. Her daughter states that as far as she is aware this is correct Related Data Home Medications ?Medication ?Instructions ?Recorded ?Confirmed alendronate 70 mg tablet 70 mg PO .Wednesday07/13/24 04/19/25 amlodipine 5 mg tablet 5 mg PO DAILY 07/13/24 04/19/25 rosuvastatin 40 mg tablet 40 mg PO HS 07/13/24 04/19/25 aspirin 81 mg chewable tablet 81 mg PO DAILY 01/06/25 04/19/25 cholecalciferol (vitamin D3) 75 75 mcg PO DAILY 01/06/25 04/19/25 mcg (3,000 unit) tablet magnesium PO DAILY 03/01/25 Allergies Allergy/AdvReac Type Severity Reaction Status Date / Time Iodinated Contrast Media Allergy Unknown Edema Verified 04/19/25 16:12 Review of Systems Status of ROS Reports: 10 or more systems reviewed and unremarkable except as noted in History and below [facility] History CAD (coronary artery disease) ?I25.10 - Atherosclerotic heart disease of [place] coronary artery without angina pectoris (ICD-10) History of myocardial infarction ?I25.2 - Old myocardial infarction (ICD-10) H/O ETOH abuse ?F10.11 - Alcohol abuse, in remission (ICD-10) Elevated LFTs ?R79.89 - Other specified abnormal findings of blood chemistry (ICD-10) Pancreatitis ?K85.90 - Acute pancreatitis without necrosis or infection, unspecified (ICD-10) Surgical History History of cholecystectomy ?Z90.49 - Acquired absence of other specified parts of digestive tract (ICD-10) Aortic valve replaced ?Z95.2 - Presence of prosthetic heart valve (ICD-10) Social History What is your current living situation?: I presently have a place to live Problems where you live: no known problems Problems where you live details: N/A In the past 12 months, utilities in danger of being shut off: no In past 12 months, lack of transportation kept you from medical appts, meetings, work, or getting things needed for daily living: no In the past 12 mos, have been you worried that your food would run out before you had money to buy more?: never true In the past 12 mos, the food you bought just didn't last and you didn't have money to buy more?: never true Highest level of school completed/degree received: Associate degree: occupational, technical, vocational program Smoking Status: Former smoker Do you use any of these nicotine containing products: None How often do you have a drink containing alcohol: 2-3 times a week Alcohol type: beer How many standard drinks containing alcohol do you have on a typical day: 1 or 2 How often do you have six or more drinks on one occasion: Never AUDIT-C Alcohol total score: 3 Non-prescribed substance use: denies use Caffeine: No How often does anyone, including family, friends and others, physically hurt you: never How often does anyone, including family, friends and others, insult or talk down to you: never How often does anyone, including family, friends and others, threaten you with harm: never How often does anyone, including family, friends and others, scream or curse at you: never service: No Exam Narrative: Exam Narrative: Const: Well-nourished, Well-developed, in moderate to severe distress Eyes: PERRL, no conjunctival injection, and symmetrical lids HENT: Atraumatic external nose and ears. Moist mucous membranes. Neck: Symmetric, trachea midline, No thyromegaly. CVS: RRR, No murmurs or gallops. Peripheral pulses 2+ and equal in all extremities RESP: Unlabored respiratory effort. Clear to auscultation bilaterally. GI: Severe epigastric tenderness, Nondistended, notable guarding. MSK:Extremities w/o deformity, Normal Active ROM Skin: Warm, Dry. No rashes or lesions. Neuro: Normal Muscle tone, No focal neurological deficits. Psych: Awake, Alert, & Oriented x3. Appropriate mood and affect. Const: Vital Signs, click to edit/add: Vital Signs - 24 hr 04/19/25 13:16 04/19/25 13:32 04/19/25 13:47 Temperature 97.9 F Pulse Rate Pulse Rate [Pulse Oximeter] 82 Respiratory Rate 16 Blood Pressure 128/52 L 119/51 L Blood Pressure [Ri ght Upper Arm] 116/65 Pulse Oximetry 97 Oxygen Delivery Me thod Room Air Oxygen Flow Rate 04/19/25 14:57 04/19/25 15:17 04/19/25 15:32 Temperature Pulse Rate 77 76 78 Pulse Rate [Pulse Oximeter] Respiratory Rate 16 18 18 Blood Pressure 115/53 L 112/55 L 107/47 L Blood Pressure [Ri ght Upper Arm] Pulse Oximetry 94 97 84 L Oxygen Delivery Me thod Oxygen Flow Rate 04/19/25 16:00 04/19/25 16:02 04/19/25 17:51 Temperature 97.6 F 98.6 F Pulse Rate 75 76 82 Pulse Rate [Pulse Oximeter] Respiratory Rate 16 18 16 Blood Pressure 122/72 114/47 L 124/57 L Blood Pressure [Ri t Upper Arm] Pulse Oximetry 93 92 88 Oxygen Delivery Me thod Oxygen Flow Rate 04/19/25 18:15 04/19/25 20:34 Temperature 98.6 F Pulse Rate Pulse Rate [Pulse Oximeter] 80 Respiratory Rate 18 Blood Pressure Blood Pressure [Ri t Upper Arm] 123/60 Pulse Oximetry 95 93 Oxygen Delivery Me thod Nasal Cannula [place] Nasal Ca nnula Oxygen Flow Rate 1.5 1.5 Course Vital Signs Vital signs: Initial Vital Signs Temperature 97.9 F 04/19/25 13:16 Temperature Source Oral 04/19/25 13:16 Pulse Rate 82 04/19/25 13:16 Respiratory Rate 16 04/19/25 13:16 Blood Pressure 116/65 04/19/25 13:16 Blood Pressure Mean 82 04/19/25 13:16 Pulse Oximetry 97 04/19/25 13:16 Oxygen Delivery Method Room Air 04/19/25 13:16 Vital Signs Temperature 97.9 F 04/19/25 13:16 Pulse Rate 82 04/19/25 13:16 Respiratory Rate 16 04/19/25 13:16 Blood Pressure 116/65 04/19/25 13:16 Pulse Oximetry 97 04/19/25 13:16 Oxygen Delivery Method Room Air 04/19/25 13:16 Temperature 98.6 F 04/19/25 20:34 Pulse Rate 80 04/19/25 20:34 Respiratory Rate 18 04/19/25 20:34 Blood Pressure 123/60 04/19/25 20:34 Pulse Oximetry 93 04/19/25 20:34 Oxygen Delivery Method [place] Nasal Cannula 04/19/25 20:34 Oxygen Flow Rate 1.5 04/19/25 20:34 Medications Administered Medications: Generic Name Dose Route Start Last Admin Trade Name Freq PRN Reason Stop Dose Admin Ciprofloxacin 400 mg in 200 mls @ 200 mls/hr 04/19/25 16:26 04/19/25 18:21 Ciprofloxacin IVPB Infused Q12H AMBERLY Infusion Metronidazole 500 mg in 100 mls @ 100 mls/hr 04/19/25 16:26 04/19/25 18:22 Metronidazole IVPB 100 mls/hr Q8H AMBERLY Administration Sodium Chloride 1,000 mls @ 150 mls/hr 04/19/25 17:42 04/19/25 20:31 0.9 % Sodium Chloride 1000 Ml IV 150 mls/hr .[id number] AMBERLY Administration Discontinued Medications Generic Name Dose Route Start Last Admin Trade Name Delonq PRN Reason Stop Dose Admin Diphenhydramine HCl 50 mg 04/19/25 14:12 04/19/25 14:46 Diphenhydramine 50 Mg/Ml Inj IVP 04/19/25 14:13 50 mg ONCE ONE Administration Hydrocortisone Sodium Succinate 200 mg 04/19/25 14:12 04/19/25 14:47 Hydrocortisone Sod Succinate 50 Mg/Ml Inj IVP 04/19/25 14:13 200 mg ONCE ONE Administration Lactated Ringer's 1,000 mls @ 1,000 mls/hr 04/19/25 13:34 04/19/25 17:44 Lactated Ringers 1000 Ml IV 04/19/25 14:33 Infused .Q1H ONE Infusion Morphine Sulfate 4 mg 04/19/25 13:34 04/19/25 14:25 Morphine 4 Mg/Ml Inj IVP 04/19/25 13:35 4 mg ONCE ONE Administration Morphine Sulfate 4 mg 04/19/25 16:38 04/19/25 16:44 Morphine 4 Mg/Ml Inj IVP 04/19/25 16:39 4 mg ONCE ONE Administration Morphine Sulfate 4 mg 04/19/25 20:48 04/19/25 21:02 Morphine 4 Mg/Ml Inj IVP 04/19/25 20:49 4 mg ONCE ONE Administration Ondansetron HCl 4 mg 04/19/25 13:34 04/19/25 14:23 Ondansetron 2 Mg/Ml Inj IVP 04/19/25 13:35 4 mg ONCE ONE Administration MDM - Abdominal Pain MDM Narrative Medical decision making narrative: Patient is an 85-year-old female presenting for epigastric pain. My 1. A differential at this time would be pancreatitis. She has been admitted here for pancreatitis before and symptoms seem consistent with this. Also considering a gastroenteritis or possible perforation. Seems less likely to be SBO at this time as she has been having bowel movements. Severe pain and a concern mesenteric ischemia to return her symptoms not seem consistent with that at this time as pain is not out of proportion to exam and is mostly localized to her epigastric region. She has stable vital signs this time and a AAA seems unlikely. Will give her morphine for pain and Zofran for nausea. She states she started getting nauseated after she got some P fentanyl via EMS. Although she does state it helped with her pain. Also gave her L of fluids. Family states she has been drinking water regularly but the daughter still does not think she drinks enough. Will do a CT scan for better evaluation along with a CMP, lipase, CBC, viral serology, urinalysis. With the epigastric pain I will also do a troponin EKG. EKG shows no concerning abnormalities troponin within normal limits. White blood cell count came back at 21.38. No other signs of sepsis at this time and I will add on a lactate. It took a while for her lab work to come back though because they had to continues the dilute the AST, ALT, lipase to get a reading. They did inform me the readings were very high. I spoke to the radiologist, Dr. Jd Mckinney, from [facility] in asked if an MRI would be beneficial at this time. He states considering she does had MRCP 3 months ago when she does not have a gallbladder he finds it very unlikely, but not impossible, for her developed a stone. He also thinks with all the edema and fluid the pancreatic protocol MRI could still miss any masses and it might be more beneficial to wait for information to come down. Patient's pain improved with the morphine but she did need a 2nd dose. Lab work returned with an AST of 6456, ALT 3855, lipase 43,453. These are significantly elevated from where they were 1 week ago. Her total bilirubin is also elevated from a week ago and direct bilirubin is 0.9. Am not sure why she is having this severe pancreatitis and liver failure. 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 Considering everything with her I do believe she is best at a facility that has GI and other subspecialist. I spoke to Dr. Patel of [facility] through [facility] and he accepts the patient for transfer. Family is agreeable to this plan. Lab Data Labs: Lab Results 04/19/25 04/19/25 04/19/25 Range/Units 13:34 13:59 14:17 WBC 21.38 H (4.50-11.00) K/uL RBC 4.61 (4.00-5.20) m/uL Hgb 14.8 (12.0-16.0) gm/dL Hct 43.5 (33.0-51.0) % MCV 94 (80-100) fL MCH 32 (26-34) pg MCHC 34 (32-36) gm/dL RDW Coeff of Nicolasa 12.5 (11.5-15.5) % Plt Count 244 (140-440) K/uL Neut % (Auto) 93.5 H (42.0-72.0) % Lymph % (Auto) 2.8 L (20-44) % [place] % (Auto) 3.5 (0.0-11.0) % Eos % (Auto) 0.0 (0.0-7.0) % Baso % (Auto) 0.1 (0.0-3.0) % Neut # (Auto) 20.00 H (1.7-7.0) K/uL Lymph # (Auto) 0.60 L (0.90-2.90) K/uL [place] # (Auto) 0.70 (0.00-0.90) K/UL Eos # (Auto) 0.00 (0.00-0.50) K/uL Baso # (Auto) 0.00 (0.00-0.30) K/uL Abs Immat Gran (auto) 0.00 (0.00-0.30) K/uL Imm/Tot Granulo (auto) 0.1 % INR (0.91-1.10) Sodium 135 (135-149) mmol/L Potassium 4.7 (3.6-5.1) mmol/L Chloride 98 (96-114) mmol/L Carbon Dioxide 28 (20-32) mmol/L Anion Gap 9 (7-15) mEq/L BUN 17 (7-30) mg/dL Creatinine 0.7 (0.5-1.5) mg/dL Estimated GFR 84 ml/min Glucose 113 (60-115) mg/dL Lactate (0.5-1.9) mmol/L Calcium 10.2 (8.4-10.6) mg/dL Total Bilirubin 2.6 H (0.1-1.5) mg/dL Direct Bilirubin 0.9 H (0.0-0.5) mg/dL AST 6456 H (12-35) U/L ALT 3855 H (4-35) U/L Alkaline Phosphatase 142 (40-150) U/L Troponin I 0.04 (0.01-0.04) ng/mL Total Protein 7.4 (6.0-8.3) g/dL Albumin 4.6 (3.3-5.0) g/dL Lipase 54939 H (23-300) U/L Urine Color (Yellow) Urine Appearance (Clear) Urine pH (5.0-8.5) Ur Specific [place] (1.000-1.030) Urine Protein (Negative) Urine Glucose (UA) (Negative) Urine Ketones (Negative) Urine Blood (Negative) Urine Nitrite (Negative) Urine Bilirubin (Negative) Urine Urobilinogen (0.2-1.0) Ur Leukocyte Esterase (Negative) Urine RBC (0-2) Urine WBC (0-5) Ur Squamous Epith Cells (None-Few) Amorphous Sediment (None) Urine Bacteria (None) SARS-CoV-2 (PCR) Negative SARS-CoV-2 (Negative) Influenza Type A (PCR) Negative PCR FLU A (Negative) Influenza Type B (PCR) Negative PCR FLU B (Negative) RSV (PCR) Negative PCR RSV (Negative) Lab Acknowledgement POC Creatinine 0.8 (0.6-1.3) mg/dl 04/19/25 04/19/25 04/19/25 Range/Units 14:51 14:52 15:00 WBC (4.50-11.00) K/uL RBC (4.00-5.20) m/uL Hgb (12.0-16.0) gm/dL Hct (33.0-51.0) % MCV (80-100) fL MCH (26-34) pg MCHC (32-36) gm/dL RDW Coeff of Nicolasa (11.5-15.5) % Plt Count (140-440) K/uL Neut % (Auto) (42.0-72.0) % Lymph % (Auto) (20-44) % [place] % (Auto) (0.0-11.0) % Eos % (Auto) (0.0-7.0) % Baso % (Auto) (0.0-3.0) % Neut # (Auto) (1.7-7.0) K/uL Lymph # (Auto) (0.90-2.90) K/uL [place] # (Auto) (0.00-0.90) K/UL Eos # (Auto) (0.00-0.50) K/uL Baso # (Auto) (0.00-0.30) K/uL Abs Immat Gran (auto) (0.00-0.30) K/uL Imm/Tot Granulo (auto) % INR (0.91-1.10) Sodium (135-149) mmol/L Potassium (3.6-5.1) mmol/L Chloride (96-114) mmol/L Carbon Dioxide (20-32) mmol/L Anion Gap (7-15) mEq/L BUN (7-30) mg/dL Creatinine (0.5-1.5) mg/dL Estimated GFR ml/min Glucose (60-115) mg/dL Lactate 3.8 H (0.5-1.9) mmol/L Calcium (8.4-10.6) mg/dL Total Bilirubin (0.1-1.5) mg/dL Direct Bilirubin (0.0-0.5) mg/dL AST (12-35) U/L ALT (4-35) U/L Alkaline Phosphatase (40-150) U/L Troponin I (0.01-0.04) ng/mL Total Protein (6.0-8.3) g/dL Albumin (3.3-5.0) g/dL Lipase (23-300) U/L Urine Color (Yellow) Urine Appearance (Clear) Urine pH (5.0-8.5) Ur Specific [place] (1.000-1.030) Urine Protein (Negative) Urine Glucose (UA) (Negative) Urine Ketones (Negative) Urine Blood (Negative) Urine Nitrite (Negative) Urine Bilirubin (Negative) Urine Urobilinogen (0.2-1.0) Ur Leukocyte Esterase (Negative) Urine RBC (0-2) Urine WBC (0-5) Ur Squamous Epith Cells (None-Few) Amorphous Sediment (None) Urine Bacteria (None) SARS-CoV-2 (PCR) (Negative) Influenza Type A (PCR) (Negative) Influenza Type B (PCR) (Negative) RSV (PCR) (Negative) Lab Acknowledgement Test Added New Spec Needed A POC Creatinine (0.6-1.3) mg/dl 04/19/25 04/19/25 04/19/25 Range/Units 16:15 17:15 17:25 WBC (4.50-11.00) K/uL RBC (4.00-5.20) m/uL Hgb (12.0-16.0) gm/dL Hct (33.0-51.0) % MCV (80-100) fL MCH (26-34) pg MCHC (32-36) gm/dL RDW Coeff of Nicolasa (11.5-15.5) % Plt Count (140-440) K/uL Neut % (Auto) (42.0-72.0) % Lymph % (Auto) (20-44) % [place] % (Auto) (0.0-11.0) % Eos % (Auto) (0.0-7.0) % Baso % (Auto) (0.0-3.0) % Neut # (Auto) (1.7-7.0) K/uL Lymph # (Auto) (0.90-2.90) K/uL [place] # (Auto) (0.00-0.90) K/UL Eos # (Auto) (0.00-0.50) K/uL Baso # (Auto) (0.00-0.30) K/uL Abs Immat Gran (auto) (0.00-0.30) K/uL Imm/Tot Granulo (auto) % INR 1.01 (0.91-1.10) Sodium (135-149) mmol/L Potassium (3.6-5.1) mmol/L Chloride (96-114) mmol/L Carbon Dioxide (20-32) mmol/L Anion Gap (7-15) mEq/L BUN (7-30) mg/dL Creatinine (0.5-1.5) mg/dL Estimated GFR ml/min Glucose (60-115) mg/dL Lactate (0.5-1.9) mmol/L Calcium (8.4-10.6) mg/dL Total Bilirubin (0.1-1.5) mg/dL Direct Bilirubin (0.0-0.5) mg/dL AST (12-35) U/L ALT (4-35) U/L Alkaline Phosphatase (40-150) U/L Troponin I (0.01-0.04) ng/mL Total Protein (6.0-8.3) g/dL Albumin (3.3-5.0) g/dL Lipase (23-300) U/L Urine Color Yellow (Yellow) Urine Appearance Slightly Cloudy A (Clear) Urine pH 7.0 (5.0-8.5) Ur Specific [place] 1.010 (1.000-1.030) Urine Protein 2+ A (Negative) Urine Glucose (UA) Negative (Negative) Urine Ketones Negative (Negative) Urine Blood Negative (Negative) Urine Nitrite Negative (Negative) Urine Bilirubin 1+ A (Negative) Urine Urobilinogen 0.2 (0.2-1.0) Ur Leukocyte Esterase Negative (Negative) Urine RBC 0-2 (0-2) Urine WBC 0-2 (0-5) Ur Squamous Epith Cells Few (None-Few) Amorphous Sediment Few A (None) Urine Bacteria None (None) SARS-CoV-2 (PCR) (Negative) Influenza Type A (PCR) (Negative) Influenza Type B (PCR) (Negative) RSV (PCR) (Negative) Lab Acknowledgement New Spec Needed A POC Creatinine (0.6-1.3) mg/dl Imaging Data CT scan abdomen and pelvis: Radiologist's impression: Compared to 01/06/2025, similar moderate volume peripancreatic fluid collection, which may reflect persistent or recurrent interstitial edematous pancreatitis. No evident mature abscess formation. The etiology of the pancreatitis is uncertain, but it may be related to the moderately sized periampullary duodenal diverticulum. Please note that all CT scans at this facility use dose modulation, iterative reconstruction, and/or weight-based dosing when appropriate to reduce radiation dose to as low as reasonably achievable. 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 Appears similar previous EKGs on file Discharge Plan Discharge Prescriptions: No Action alendronate 70 mg tablet 70 mg PO .WEDNESDAY Rx Instructions: WEEKLY ON WEDNESDAY amlodipine 5 mg tablet 5 mg PO DAILY rosuvastatin 40 mg tablet 40 mg PO HS cholecalciferol (vitamin D3) 75 mcg (3,000 unit) tablet 75 mcg PO DAILY aspirin 81 mg tablet,chewable 81 mg PO DAILY magnesium PO DAILY Rx Instructions: OTC MAGNESIUM Follow Up/Referrals: Ayan Brambila MD [Primary Care Provider, Family Practice]
[2025-04-19 14:11] LABS: Creatinine, Point-of-Care* 0.8 mg/dl (0.6-1.3)
[2025-04-19] MEDS: LACTATED RINGERS 1000 ML 1,000 ML IV (14:20)
[2025-04-19] MEDS: ONDANSETRON 2 MG/ML inj 4 MG IVP (14:23)
[2025-04-19] MEDS: MORPHINE 4 MG/ML INJ IVP ×3 (14:25→21:02)
[2025-04-19 14:37] LABS: Albumin* 4.6 g/dL (3.3-5.0); Chloride* 98 mmol/L (96-114); Potassium* 4.7 mmol/L (3.6-5.1); Sodium* 135 mmol/L (135-149)
[2025-04-19 14:39] LABS: Basophils Percent Auto 0.1 % (0.0-3.0); Hematocrit 43.5 % (33.0-51.0); Hemoglobin* 14.8 gm/dL (12.0-16.0); Immature Granulocytes Pct Auto 0.1 %; Lymphocytes Percent Auto 2.8 % (20-44); Mean Corpuscular HGB Conc 34 gm/dL (32-36); Mean Corpuscular Hemoglobin 32 pg (26-34); Mean Corpuscular Volume 94 fL (80-100); Monocytes Percent Auto 3.5 % (0.0-11.0); Neutrophils Percent Auto 93.5 % (42.0-72.0); Platelet Count* 244 K/uL (140-440); RDW Coefficient of Variation % 12.5 % (11.5-15.5); Red Blood Count 4.61 m/uL (4.00-5.20); White Blood Count* 21.38 K/uL (4.50-11.00)
[2025-04-19 14:40] LABS: Alkaline Phosphatase* 142 U/L (40-150); Anion Gap 9 mEq/L (7-15); Bilirubin Total* 2.6 mg/dL (0.1-1.5); Blood Urea Nitrogen* 17 mg/dL (7-30); Carbon Dioxide* 28 mmol/L (20-32); Creatinine* 0.7 mg/dL (0.5-1.5); Estimated Glomerular Filt Rate 84 ml/min; Total Protein* 7.4 g/dL (6.0-8.3)
[2025-04-19 14:41] LABS: Calcium* 10.2 mg/dL (8.4-10.6); Glucose* 113 mg/dL (60-115)
[2025-04-19 14:43] LABS: Slide Review Reflex No
[2025-04-19] MEDS: diphenhydrAMINE 50 MG/ML inj IVP (14:46)
[2025-04-19] MEDS: HYDROCORTISONE SOD SUCCINATE 50 MG/ML inj 200 MG IVP (14:47)
[2025-04-19 15:08] LABS: PCR FLU A Negative PCR FLU A (Negative); PCR FLU B Negative PCR FLU B (Negative); PCR RSV Negative PCR RSV (Negative); SARS PCR* Negative SARS-CoV-2 (Negative)
[2025-04-19 15:12] LABS: Lactate* 3.8 mmol/L (0.5-1.9)
[2025-04-19 15:14] LABS: Lab Add On Test New Spec Needed
[2025-04-19 16:43] LABS: Appearance Urine Slightly Cloudy (Clear); Bilirubin Urine 1+ (Negative); Blood Urine Negative (Negative); Color Urine Yellow (Yellow); Glucose Urine Negative (Negative); Ketones Urine Negative (Negative); Leukocyte Esterase Urine Negative (Negative); Nitrite Urine Negative (Negative); Protein Urine 2+ (Negative); Urobilinogen Urine 0.2 (0.2-1.0)
[2025-04-19 16:45] LABS: Alanine Aminotransferase* 3855 U/L (4-35); Aspartate Amino Transferase* 6456 U/L (12-35)
[2025-04-19 16:54] LABS: Troponin I* 0.04 ng/mL (0.01-0.04)
[2025-04-19 17:02] LABS: Amorphous Sediment Urine Few; RBC Urine 0-2 (0-2); Squamous Epithelial Cell Urine Few (None-Few); WBC Urine 0-2 (0-5)
[2025-04-19 17:08] LABS: Bilirubin Direct* 0.9 mg/dL (0.0-0.5)
[2025-04-19] MEDS: CIPROFLOXACIN 400 MG/200 ML PIGGYBACK 200 MG IVPB (17:16)
[2025-04-19 17:31] LABS: Lab Add On Test New Spec Needed
[2025-04-19 17:56] LABS: INR 1.01 (0.91-1.10); Prothrombin Time 14.1 Seconds
[2025-04-19] MEDS: metroNIDAZOLE 500 MG/100 ML PIGGYBACK 100 MG IVPB (18:22)
[2025-04-19] MEDS: 0.9 % SODIUM CHLORIDE 1000 ml 1,000 ML 150 ML IV (20:31)
== END 2025-04-19 21:15 | disposition short-term general hospital (02) ==
PROVIDERS: Emergency Provider Student in an Organized Health Care Education/Training Program; PCP Family Medicine
DX: K57.10 Diverticulosis of small intestine without perforation or abscess without bleeding (principal)
CPT/HCPCS: 36415; 74177; 80053; 81001; 82248; 82565; 83605; 83690; 84484; 85025; 85610; 87631; 93005; 96365; 96366; 96375; 96376; 99285; J0744; J1200; J1720; J1836; J2270; J2405; J7030; J7120; Q9967

== ENCOUNTER 2025-04-19 21:07 | Outpatient (CLI) | payer MEDICARE, SELFPAY | END 2025-04-19 21:08 | disposition home or self-care (01) | LOC: AMB 04-20 10:59 | PROVIDERS: PCP Family Medicine; Visit Provider Emergency Medicine Emergency Medical Services | DX: K85.90 Acute pancreatitis without necrosis or infection, unspecified (principal); K72.00 Acute and subacute hepatic failure without coma | CPT/HCPCS: A0425; A0427 ==